=== PATIENT | male | born 1945 | race Caucasian/White ===

== ENCOUNTER 2016-10-13 11:30 | Outpatient (CLI) | payer MEDICARE, OTHER | END 2016-10-13 11:31 | disposition home or self-care (01) | DX: M79.642 Pain in left hand (principal); M79.641 Pain in right hand ==

== ENCOUNTER 2016-11-15 12:02 | Day surgery (SDC) | payer MEDICARE, OTHER ==
[2016-11-15] MEDS ORDERED: LACTATED RINGERS 1,000 ML IV ONE (13:00)
[2016-11-15] MEDS ORDERED: MIDAZOLAM 2 MG/2 ML VIAL IVP ONE (13:56)
[2016-11-15] MEDS ORDERED: fentaNYL 100 MCG/2 ML VIAL IVP ONE (13:56)
[2016-11-15] MEDS ORDERED: LIDO GARGLE 30 ML BOTTLE PO ONE (14:00)
[2016-11-15] MEDS ORDERED: BENZOCAINE/TETRACAINE/BUTAMBEN SPRAY 56 GM TOP ONE (14:00)
[2016-11-15 15:07] VITALS: BP 144/63
== END 2016-11-15 12:03 | disposition home or self-care (01) ==
LOC: SDS 12:02
PROVIDERS: ATTEND Surgery
PROC: 0DB68ZX Excision of Stomach, Via Natural or Artificial Opening Endoscopic, Diagnostic (ICD-10-PCS; 2016-11-15)
PROC: 0DBH8ZZ Excision of Cecum, Via Natural or Artificial Opening Endoscopic (ICD-10-PCS; principal; 2016-11-15 13:30)
PROC: 0DBL8ZZ Excision of Transverse Colon, Via Natural or Artificial Opening Endoscopic (ICD-10-PCS; 2016-11-15 13:30)
DX: R19.5 Other fecal abnormalities (principal); D12.0 Benign neoplasm of cecum; D12.3 Benign neoplasm of transverse colon; K64.8 Other hemorrhoids; K29.70 Gastritis, unspecified, without bleeding; Z87.891 Personal history of nicotine dependence; I10 Essential (primary) hypertension; G47.30 Sleep apnea, unspecified; R06.89 Other abnormalities of breathing; K21.9 Gastro-esophageal reflux disease without esophagitis; Z95.5 Presence of coronary angioplasty implant and graft
CPT/HCPCS: 43239; 45380; 45385; 87081; A9270; J7120; 88305

== ENCOUNTER 2017-05-14 09:50 | Outpatient (CLI) | payer MEDICARE, OTHER ==
[2017-05-14 10:19] LABS: BASOPHILS % (AUTO) 0.7 %; HCT - HEMATOCRIT 41.5 % (42.0-52.0); HGB - HEMOGLOBIN 14.3 g/dL (14.0-18.0); LYMPHOCYTES % (AUTO) 14.1 %; MEAN CORPUSCULAR HEMOGLOBIN 28.9 pg (27.0-31.0); MEAN CORPUSCULAR HGB CONC 34.4 g/dL (32.0-36.0); MEAN CORPUSCULAR VOLUME 84.2 fL (80.0-94.0); MONOCYTES # (AUTO) 0.5 10^3/uL (0.0-1.0); MONOCYTES % (AUTO) 6.7 %; NEUTROPHILS # (AUTO) 5.8 10^3/uL (1.5-6.6); NEUTROPHILS % (AUTO) 78.5 %; NUCLEATED RED BLOOD CELLS AUTO 0.1 /100WBC; RED BLOOD COUNT 4.93 10^6/uL (4.70-6.10); RED CELL DISTRIBUTION WIDTH 14.6 % (12.0-15.0); UNCORRECTED WHITE BLOOD COUNT 7.4 x10^3/uL; WHITE BLOOD COUNT 7.4 x10^3/uL (4.8-10.8)
[2017-05-14 10:34] LABS: ALBUMIN/GLOBULIN RATIO 1.1 (1.0-2.2); BILIRUBIN,TOTAL 0.4 mg/dL (0.2-1.0); CALCIUM 8.9 mg/dL (8.5-10.3); CREATININE 1.3 mg/dL (0.6-1.2); POTASSIUM 4.2 mmol/L (3.5-5.0); TOTAL PROTEIN 7.7 g/dL (6.7-8.2)
[2017-05-14 10:40] LABS: HEMOGLOBIN A1C 0.71 g/dL
== END 2017-05-14 09:51 | disposition home or self-care (01) ==
LOC: LAB 09:50
PROVIDERS: ATTEND Internal Medicine
DX: E11.9 Type 2 diabetes mellitus without complications (principal)
CPT/HCPCS: 36415; 80053; 83036; 85025

== ENCOUNTER 2017-05-17 08:31 | Outpatient (CLI) | payer MEDICARE, OTHER ==
[2017-05-17] MEDS ORDERED: GADOBUTROL 15 MMOL/15 ML VIAL ONE (08:52)
[2017-05-17] MEDS ORDERED: GADOBUTROL 15 MMOL/15 ML VIAL IVP ONE (09:33)
--- NOTE | 2017-05-17 20:10 | MRI Report ---
EXAM: MRI BRAIN WITHOUT AND WITH CONTRAST EXAM DATE: 05/17/2017 09:38 AM. CLINICAL HISTORY: Headaches. Blurred vision. Lip and toe tingling. COMPARISON: 01/25/2013. TECHNIQUE: Multiplanar, multisequence T1-weighted and fluid-sensitive MR sequences of the brain were performed. Sequences optimized for routine evaluation. Other: None. IV Contrast: Without and with 14 mL Gadavist. FINDINGS: Brain Volume: Normal for age. Parenchyma: No evidence for acute or recent ischemic infarct or cerebral hemorrhage. No mass effect, midline shift or abnormal subdural fluid collection. No intracranial enhancing or space-occupying mass. Again seen is a small amount of nonspecific white matter T2 hyperintense signal changes in the cerebr al hemispheres, similar to prior, likely secondary to aging and minimal chronic microangiopathy. Ventricles/Cisterns: No hydrocephalus. No abnormal extra-axial fluid collection or hemorrhage. Orbits: Symmetric and unremarkable. Sinuses: No acute-appearing sinus or mastoid disease. Bones: No focal pathologic appearing marrow signal changes. Other: The major arterial skull base flow voids are present. IMPRESSION: No acute abnormality or enhancing mass. Essentially stable MRI appearance of the brain compared to e prior exam. [facility] Referring Provider Line: [phone] SITE ID: [id number]
== END 2017-05-17 08:32 | disposition home or self-care (01) ==
LOC: DI 08:31
PROVIDERS: ATTEND Internal Medicine
DX: R51 Headache (principal)
CPT/HCPCS: 70553; A9585

== ENCOUNTER 2017-08-04 09:53 | Observation (INO) | payer MEDICARE, OTHER ==
[2017-08-04 10:19] LABS: BASOPHILS % (AUTO) 0.6 %; EOSINOPHILS % (AUTO) 0.1 %; LYMPHOCYTES # (AUTO) 1.1 10^3/uL (1.5-3.5); MEAN CORPUSCULAR HEMOGLOBIN 29.1 pg (27.0-31.0); MEAN CORPUSCULAR HGB CONC 34.1 g/dL (32.0-36.0); MEAN CORPUSCULAR VOLUME 85.3 fL (80.0-94.0); MEAN PLATELET VOLUME 6.9 fL (7.4-11.4); MONOCYTES # (AUTO) 0.5 10^3/uL (0.0-1.0); MONOCYTES % (AUTO) 8.3 %; NEUTROPHILS # (AUTO) 4.3 10^3/uL (1.5-6.6); PLT - PLATELET COUNT 165 10^3/uL (130-450); RED CELL DISTRIBUTION WIDTH 14.9 % (12.0-15.0)
--- NOTE | 2017-08-04 10:22 | ED Physician Documentation ---
History of Present Illness - Stated complaint Stated Complaint: CHEST PX - Chief complaint Chief Complaint: Cardiac - Additonal information Additional information: hx from pt 71 male hx HTN DM CHF this AM while in a riding shopping cart he developed left sided chest pain 7- 10 in severity lasting approx 30 min with associated soa and near syncope, no diaphoresis or nausea better now no recent fever cough etc Review of Systems Constitutional: denies: Fever, Chills Cardiac: reports: Chest pain / pressure. denies: Palpitations Respiratory: reports: Dyspnea. denies: Cough GI: denies: Abdominal Pain, Nausea, Vomiting Musculoskeletal: denies: Extremity pain, Extremity swelling Immunocompromised: denies: Immunocompromised PD PAST MEDICAL HISTORY - Past Medical History Past Medical History: Yes Cardiovascular: Congestive heart failure, Hypertension, High cholesterol Respiratory: Sleep apnea, CPAP use Neuro: Peripheral neuropathy Endocrine/Autoimmune: Type 2 diabetes GI: GERD, Pancreatitis, Other Psych: Post traumatic stress disorder Musculoskeletal: Osteoarthritis - Past Surgical History Past Surgical History: Yes General: Cholecystectomy, Other Ortho: Knee replacement - Present Medications Home Medications: Ambulatory Orders Medication Instructions Recorded Confirmed Aspirin 325 mg PO 2100 12/28/12 08/04/17 Prazosin [Minipress] 5 mg PO DAILY 12/28/12 08/04/17 Sertraline [Zoloft] 100 mg PO DAILY 12/28/12 08/04/17 Simvastatin [Zocor] 20 mg PO 2100 12/28/12 08/04/17 Furosemide 20 mg PO DAILY 08/15/14 08/04/17 Insulin Glargine,Hum.rec.anlog 50 units SQ 2100 10/01/15 08/04/17 [Lantus] Lipase/Protease/Amylase [Pancreaze 1 tab PO AC 10/01/15 08/04/17 10,500 Unit Cap] Cartilage/Collagen/Bor/Hyalur 2 each PO DAILY 11/12/16 08/04/17 [Joint Health Tablet] Insulin Aspart [NovoLOG] 20 unit SUBQ TIDWM 11/12/16 08/04/17 Minocycline HCl 100 mg PO DAILY 11/12/16 08/04/17 Pantoprazole [Protonix] 40 mg PO BID 11/12/16 08/04/17 - Allergies Allergies/Adverse Reactions: Allergies Allergy/AdvReac Type Severity Reaction Status Date / Time propoxyphene HCl * AdvReac Unknown Nausea Verified 08/04/17 10:01 [From Darvon] oxycodone AdvReac Hallucinati Verified 08/04/17 10:01 ons - Social History Does the pt smoke?: No Smoking Status: Never smoker Does the pt drink ETOH?: No Does the pt have substance abuse?: No - Immunizations Immunizations are current?: Yes - POLST Patient has POLST: No PD ED PE NORMAL - Vitals Vital signs reviewed: Yes - General General: Alert and oriented X 3 - HEENT HEENT: PERRL - Neck Neck: Supple, no meningeal sign - Cardiac Cardiac: RRR - Respiratory Respiratory: No respiratory distress, Clear bilaterally - Abdomen Abdomen: Soft, Non tender - Derm Derm: Normal color - Extremities Extremities: No deformity, No calf tenderness / cord. No: No edema (mild amaury symm) - Neuro Neuro: Alert and oriented X 3 Results - Vitals Vitals: Vital Signs - 24 hr 08/04/17 08/04/17 08/04/17 09:58 10:07 10:15 Temperature 36.3 C L Heart Rate 69 66 Respiratory 20 20 Rate Blood Pressure 203/91 H 182/90 H Blood Pressure 182/91 H [Left] O2 Saturation 98 99 08/04/17 12:11 Temperature Heart Rate 63 Respiratory 16 Rate Blood Pressure Blood Pressure [Left] O2 Saturation 99 Oxygen O2 Source Room air - EKG (time done) 0957 Rate: Rate (enter#) Rhythm: NSR Intervals: Normal RI QRS: Normal Ischemia: Normal ST segments Compare to prior EKG: Unchanged from prior EKG - Labs Labs: Laboratory Tests 08/04/17 08/04/17 08/04/17 10:00 10:00 10:00 WBC 6.0 RBC 4.80 Hgb 14.0 Hct 41.0 L MCV 85.3 MCH 29.1 MCHC 34.1 RDW 14.9 Plt Count 165 MPV 6.9 L Neut # 4.3 Lymph # 1.1 L Bailey # 0.5 Eos # 0.0 Baso # 0.0 Absolute Nucleated RBC 0.00 Nucleated RBC % 0.0 Sodium 140 Potassium 4.0 Chloride 102 Carbon Dioxide 27 Anion Gap 11.0 BUN 18 Creatinine 1.3 H Estimated GFR (MDRD) 55 L Glucose 134 H Calcium 8.9 Total Bilirubin 0.4 AST 37 ALT 40 Alkaline Phosphatase 58 Troponin I < 0.04 Total Protein 8.0 Albumin 4.4 Globulin 3.6 Albumin/Globulin Ratio 1.2 Lipase 17 L - Rads (name of study) CXR Radiology: See rad report (NACPD) PD MEDICAL DECISION MAKING - ED course ED course: HEART score 6 will admit remains pain free Departure - Departure Disposition: ED Place in Observation Clinical Impression: Chest pain Qualifiers: Chest pain type: unspecified Qualified Code(s): R07.9 - Chest pain, unspecified Condition: Good Discharge Date/Time: 08/04/17 13:10
[2017-08-04 10:37] LABS: ALBUMIN 4.4 g/dL (3.2-5.5); ALBUMIN/GLOBULIN RATIO 1.2 (1.0-2.2); BILIRUBIN,TOTAL 0.4 mg/dL (0.2-1.0); CALCIUM 8.9 mg/dL (8.5-10.3); CREATININE 1.3 mg/dL (0.6-1.2)
--- NOTE | 2017-08-04 11:40 | XRAY Report ---
EXAM: CHEST RADIOGRAPHY EXAM DATE: 08/04/2017 10:40 AM. CLINICAL HISTORY: Cp soa. COMPARISON: 10/01/2015. TECHNIQUE: 2 views. FINDINGS: Lungs/Pleura: No focal pulmonary opacities evident. No definite pleural effusion. Mild pleural-based density/thickening along the left lateral lower hemithorax is without gross change, consistent with a benign finding. No pneumothorax. Normal volumes. Mediastinum: Heart and mediastinal contours are unremarkable. Other: None. IMPRESSION: No definite acute abnormality of chest or significant interval change. [facility] Referring Provider Line: [phone] SITE ID: [id number]
--- NOTE | 2017-08-04 11:40 | XRAY Preliminary Report ---
Exam: XR CHEST 2 VIEW X-RAY IMPRESSION: No definite acute abnormality of chest or significant interval change. [facility] SITE ID: [id number]
[2017-08-04] MEDS ORDERED: ONDANSETRON 4 MG/2 ML VIAL IVP PRN (12:15)
[2017-08-04] MEDS ORDERED: ACETAMINOPHEN 325 MG TABLET PO PRN (12:15)
[2017-08-04] MEDS ORDERED: SODIUM CHLORIDE FLUSH 0.9% 10 ML SYRINGE IVP PRN (12:15)
[2017-08-04] MEDS ORDERED: ONDANSETRON ODT 4 MG TABLET TL PRN (12:15)
[2017-08-04] MEDS ORDERED: TEMAZEPAM 15 MG CAPSULE PO PRN (12:15)
[2017-08-04] MEDS ORDERED: NITROGLYCERIN SL 0.4 MG TABLET SL STA (12:28)
[2017-08-04] MEDS: SODIUM CHLORIDE FLUSH 0.9% 10 ML SYRINGE IVP SCH ×2 (15:36→21:10)
[2017-08-04] MEDS: LIPASE/PROTEASE/AMYLASE CAPSULE PO SCH (17:05)
--- NOTE | 2017-08-04 19:35 | HISTORY & PHYSICAL EXAMINATION ---
DATE OF SERVICE: 08/04/2017 Physician: Bekah Farooq MD PRIMARY CARE PROVIDER: Sav Lehman DO. ADMITTING PROVIDER: Bekah Farooq MD. CHIEF COMPLAINT: Chest pain. HISTORY OF PRESENT ILLNESS: Mr. Rubi is a short statured, morbidly obese gentleman, who has obstructive sleep apnea, hyperlipidemia, history of resolved hypertension, and diabetes mellitus. He is an ex-smoker. He has been evaluated for chest pain in the past. He had pulmonary embolus when he was in his 30's and still in the [employer]. He describes a ventilation perfusion scan perfectly. But he cannot tell me why he had a PE and what caused him to be hypercoagulable. He states that at that point in time, he was very active, healthy, in the [employer] and he never figured it out. He returned in 2012 to the emergency room here at this hospital, again, with chest pain. Troponins were negative. CT angiogram of the chest was negative for PE. He ruled out and has been sent home. Between then and now he had multiple medical issues including a catastrophic injury after an ERCP, but he has not had any admissions for [place], congestive heart failure, chest pain, or any type of heart disease. He has been in his usual state of health. He is gradually trying to get his strength back from the close to 1 year hospitalization in 2014 that he had for the catastrophic complications of common bile duct stone. Currently, he uses a scooter cart at [employer] [facility] [employer] when he goes grocery shopping. He had gone to [facility], and got in the cart, was scooting up and down the aisles with his cart. He had gotten to the [employer] register when all of a sudden he had a blazing 10/10 chest pain that was mid substernal. It swept down along his rib cage and left upper quadrant into the left mid axillary line in a half [place]. It resolved as he was paying for groceries. It made him lightheaded, clammy. He then went out to the truck once the pain went away. After he unloaded his groceries the same thing happened only this time it was a 7/10 pain lasting about 10 minutes. He decided to drive to the emergency room. This is where his got really mad at him because she felt he should have called 911. In the emergency room, he had slight pain at about 2-3/10. Right now talking to me it is a 2 or 3/10 as well, but he is not clammy, diaphoretic. He is not lightheaded. That only happened when he was in the [employer] store and in the [employer] parking lot. There was no left arm pain. No palpitations with this. He does not describe orthopnea, increasing leg edema in the last few weeks. He was evaluated in the emergency room where he was normotensive, not hypoxic, not tachycardic. His initial troponin was less than 0.04. His EKG shows sinus rhythm. Normal R -wave progressions. Normal ST segments. He does have a nondiagnostic Q in lead III. He is now placed in observation for atypical chest pain in a patient who has definite cardiac risk factors. PAST MEDICAL HISTORY: 1. Pulmonary embolus when he was in his 30s. 2. Morbid obesity. He has gotten down as low as 240 after catastrophic illness in 2014, but most likely he is about 320 pounds now. 3. History of hypertension that he says is resolved. He does not have that diagnosis anymore, but he takes Minipress. 4. Type 2 diabetes mellitus for over 10 years. He initially had quite a bit of peripheral neuropathy. But, the peripheral neuropathy went away after his pancreatic abscess debulked in 2014. He continues to have mild chronic kidney disease. Denies retinopathy. 5. Obstructive sleep apnea with CPAP. Has had 2 sleep studies here on [facility]. 6. Pulmonary hypertension is on a diagnosis in his old medical records. However, an echocardiogram done in February 2014 shows grade 1 diastolic dysfunction and pulmonary artery pressures that are fairly normal at 25-30 mmHg. 7. Hyperlipidemia. 8. Cluster headaches. 9. Posttraumatic stress disorder from being in [place]. 10. Reflux disease. 11. Fatty liver. 12. Osteoarthritis with a history of bilateral total knee replacements. 13. Common bile duct stone. He presented as epigastric pain in June 2014 to this institution. MRCP confirmed the common bile duct stone. He then was transferred and who at the institution he had the ERCP, had an undiagnosed laceration of what he calls "the pancreas." He was sent home. He subsequently developed necrotizing pancreatitis. He was transferred to [facility]. He says he was in the hospital pretty much from June 2014 to March 2015. 14. Carotid bruit. Dopplers done 02/2013 showed no stenosis. 15. C-spine stenosis on MRI from 03/2013. He has moderate right C5-C6 foraminal stenosis from uncovertebral and facet arthropathy. Moderate to severe bilateral C6-C7 foraminal stenosis from degenerative endplate marrow edema. Moderate left C2-3 foraminal stenosis. Multilevel bulges and facet arthropathy. 16. History of headache and blurred vision, resulting in an MRI 05/17/2017 that was normal. This is compared to a 07/2012 MRI of the head that was also normal. 17. Tubular adenomas of the large bowel found on colonoscopy 10/2016. ALLERGIES: 1. PROPOXYPHENE. 2. OXYCODONE. MEDICATIONS: 1. Aspirin 325 mg a day. 2. A collagen supplement 2 tablets daily. 3. Lasix 20 mg daily. 4. NovoLog insulin 20 units before each meal. 5. Lantus 50 units at 9 o'clock. 6. Lipase, protease, amylase 1 tablet before each meal. 7. Minocycline 100 mg daily. 8. Protonix 40 mg p.o. b.i.d. 9. Minipress 5 mg daily. 7. Zoloft 100 mg daily. 8. Simvastatin 20 mg daily. SOCIAL HISTORY: He was born in [place], [place] and then served in the [employer] when he left home. 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 He moved to [facility] in 2003. He lives in [place] with his . He does not smoke. He does not have a history of alcohol abuse. He has no history of recreational substance abuse. He was independent, still driving, until the catastrophic illness from the pancreatitis. FAMILY HISTORY: Dad had coronary artery disease in his late 60s with bypass surgery. Dad also had diabetes. Mom was healthy. Siblings have been healthy and his children have been healthy. REVIEW OF SYSTEMS GENERAL: He has no constitutional complaints of fevers, sweats, unexpected weight changes. ENT: Sometimes gets some blurred vision. Sometimes gets headaches. Sometimes gets facial dysesthesias. No problems with swallowing. No problems with speech. Denies deafness. Denies glaucoma or cataracts. PULMONARY: Denies coughing, wheezing, chest congestion, hemoptysis, chronic bronchitis or asthma. CARDIOVASCULAR: As above. GASTROINTESTINAL: As above. He knows what reflux pain feels like and this is not reflux pain. No recent change in bowel or bladder habits. GENITOURINARY: Nocturia once. Decreased stream mild, but no urgency, frequency , dysuria, hematuria. JOINTS: Bother him, back, neck, hands, hips. But the pain is unchanged. Nothing new. No change in activity because of it. SKIN: No new skin lesions, moles or rashes. PRODUCT RESPONSIBILITY LIAISON: Positive for the PTSD, anxiety at times, nightmares at times, but no suicidal or homicidal ideation. No history of syncope, seizures. Denies any memory problems. Overall, mobility has decreased since his almost year long illness and he finds himself not able to do prolonged activity. So he relies a lot on a scooter or a walker. He is seen in med/surg after being transferred from ICU. PHYSICAL EXAMINATION VITAL SIGNS: Temperature is 36.3, pulse is 59, blood pressure is 143/73, respirations 18, and 98% on room air. GENERAL: He is a short-statured, morbidly obese gentleman, balding, wearing glasses, sitting at the bedside watching TV, in no acute distress. HEAD AND NECK: Unremarkable other than the glasses, slightly nasal tone of voice. Moist oral mucosa that is pink. No facial asymmetry and speech is normal. LUNGS: Lungs in a barrel chest are clear to auscultation and percussion. No crackles, rhonchi or wheezing. HEART: PMI is normally placed, but he has distant cardiac tones with a regular rate and rhythm. ABDOMEN: Soft, obese, protuberant, nontender with a large abdominal pannus. EXTREMITIES: Trace edema and cankles without clubbing, cyanosis or edema. NEUROLOGIC: He is alert and oriented to person, place and time. Lucid historian. Normal speech patterns. Essentially cranial nerves II-XII appear intact. Hand grasp strength is normal. He lifts his legs off the bed for me and those are normal. He is able to swing himself to a sitting and standing position with no assist needed whatsoever. Mild increased respiratory effort with this. LABORATORY DATA: Sodium 140, potassium 4, BUN 18, creatinine 1.3, random glucose 134. Troponin less than 0.04. White cell count is 6, hemoglobin 14, hematocrit 41, platelets 165. EKG as above. Chest x-ray has no definite acute abnormality or significant interval change. ASSESSMENT 1. Chest pain in a gentleman whose risk factors include male sex, obesity, hyperlipidemia, diabetes, and supposedly history of resolved hypertension with the family history. Attestation: This gentleman will be placed under observation for less than 96 hours. If he is still here at 96 hours, he will be evaluated for discharge or transfer. PLAN We will place in observation for rule out myocardial infarction. Check serial cardiac enzymes every 6 hours for a total set of 3 sets overall. Continue aspirin and Lipitor. Nuclear medicine stress test with Lexiscan tomorrow morning. 2. Hypertension. PLAN: Resume usual medications. Avoid beta blockers in anticipation of the stress test tomorrow. Blood pressure is mildly elevated in the 180s to 140s for him. He may need adjustment of his medications in the outpatient setting. Right now, he is just on an alpha juan manuel. 3. Type 2 diabetes mellitus, with complications, on long-term use of insulin. PLAN Check A1c. Resume usual Lantus dose. Resume usual before meals t.i.d. 20 units dosing. Sliding scale insulin. 4. FULL CODE STATUS. 5. Deep venous thrombosis prophylaxis will be NATE hose at most since he is ambulatory and at low risk. I am puzzled by the fact that he had the PE in his 30s. He had another CT pulmonary angiogram negative in 2012. We will not repeat at this time since chest pain is not associated with hypoxia or tachycardia. TD: 08/04/2017 19:33 LUCIA
[2017-08-04] MEDS: INSULIN ASPART 300 UNIT/3 ML PEN SUBQ SCH (19:50)
[2017-08-04] MEDS ORDERED: ATORVASTATIN 10 MG TABLET PO SCH (21:00)
[2017-08-04] MEDS ORDERED: INSULIN GLARGINE 300 UNIT/3 ML PEN SUBQ SCH (21:00)
[2017-08-04] MEDS: PANTOPRAZOLE 40 MG TABLET PO SCH (21:09)
[2017-08-05 06:31] LABS: CHOL/HDL RATIO 4.9 (<5.0); CHOLESTEROL 123 mg/dL; HDL CHOLESTEROL 25 mg/dL; LDL CHOLESTEROL,CALCULATED 73 mg/dL; LDL/HDL RATIO 2.9 (<3.6); VLDL CHOLESTEROL 25 mg/dL
[2017-08-05] MEDS: SODIUM CHLORIDE FLUSH 0.9% 10 ML SYRINGE IVP SCH (06:55)
[2017-08-05] MEDS: LIPASE/PROTEASE/AMYLASE CAPSULE PO SCH ×2 (08:00→13:21)
[2017-08-05] MEDS: INSULIN ASPART 300 UNIT/3 ML PEN SUBQ SCH ×2 (08:00→13:21)
[2017-08-05] MEDS ORDERED: POLYETHYLENE GLYCOL 3350 17 GM PACKET PO SCH (09:00)
[2017-08-05] MEDS ORDERED: SERTRALINE 50 MG TABLET PO SCH (09:00)
[2017-08-05] MEDS ORDERED: ASPIRIN 325 MG TABLET PO SCH (09:00)
[2017-08-05] MEDS ORDERED: MINOCYCLINE HCL 100 MG PO SCH (09:00)
[2017-08-05] MEDS ORDERED: PRAZOSIN 1 MG CAPSULE PO SCH (09:00)
[2017-08-05] MEDS ORDERED: INSULIN GLARGINE 300 UNIT/3 ML PEN SUBQ SCH (09:00)
[2017-08-05] MEDS ORDERED: FUROSEMIDE 20 MG TABLET PO SCH (09:00)
--- NOTE | 2017-08-05 09:10 | Discharge Plan ---
Discharge Plan Disposition: 01 Home, Self Care Condition: Good Diet: Cardiac Activity Restrictions: Activity as Tolerated Shower Restrictions: No Driving Restrictions: No Additional Instructions or Follow Up instructions: You were placed under observation because you began having left-sided chest pain while you are shopping at [employer] yesterday. You have all the risk factors for heart disease and that includes male sex, high cholesterol, a family history, diabetes, and ex-smoking history. At one point used to have high blood pressure. Your EKG has remained normal. 3 sets of blood tests were done to make sure you were not having a heart attack and the enzymes were all normal. You also had a stress test at discharge. While the preliminary EKG is normal, the final report for the x-ray part of your heart is pending. Please make sure that you see your primary care provider and that they review that x-ray part. The cause of your chest pain is still not clear. You may have had rib cage spasm, esophageal spasm, or other causes of chest pain. Again your primary care provider may work with you to find out what the cause was. No Smoking: If you smoke, Please STOP! Call for help. Follow-up with: Sav Lehman MD [Primary Care Provider] -
[2017-08-05] MEDS ORDERED: REGADENOSON 0.4 MG/5 ML SYRINGE IVP ONE ×2 (10:01→11:13)
[2017-08-05] MEDS: PANTOPRAZOLE 40 MG TABLET PO SCH (13:20)
[2017-08-05 14:08] VITALS: BP 139/72
--- NOTE | 2017-08-05 14:18 | Nuclear Medicine Prelim Report ---
Exam: NM MYOCARDIAL PERFUSION STR/RST IMPRESSION: 1. Inferior wall fixed defect -- differential diagnosis is diaphragmatic artifact given patient's la rge body habitus versus old nontransmural inferior wall infarct. 2. No scintigraphic evidence of inducible ischemia. 3. Left ventricular ejection fraction estimated at 65%. [facility] SITE ID: [id number]
--- NOTE | 2017-08-05 14:18 | Nuclear Medicine Report ---
EXAM: NUCLEAR MEDICINE MYOCARDIAL PERFUSION STRESS AND REST EXAM DATE: 08/05/2017 09:39 AM. CLINICAL HISTORY: Chest pain. COMPARISON: 08/04/17. TECHNIQUE: Patient given 11.6 mCi technetium 99m sestamibi IV for the rest portion of the study. Non- gated cardiac SPECT scintigraphy performed with multiplanar reformats. After an appropriate delay, patient given 0.4 mg Lexiscan for pharmacologic stress. Next, given 41.8 mCi Tc99m sestamibi iv. Cardiac gated SPECT scintigraphy obtained with multiplanar reformats, wall m otion analysis, and left ventricular ejection fraction estimation. FINDINGS: There is a moderate size focus of mild decreased activity in the inferior wall from apex to base, fix ed on both stress and rest. No reversible stress-related perfusion defects. Wall motion is uniform. Left ventricular ejection fraction estimated at 65%. IMPRESSION: 1. Inferior wall fixed defect -- differential diagnosis is diaphragmatic artifact given patient's la rge body habitus versus old nontransmural inferior wall infarct. 2. No scintigraphic evidence of inducible ischemia. 3. Left ventricular ejection fraction estimated at 65%. [facility] Referring Provider Line: [phone] SITE ID: [id number]
--- NOTE | 2017-08-06 22:41 | DISCHARGE SUMMARY ---
Physician: Bekah Farooq MD DATE OF ADMISSION: 08/04/2017 DATE OF DISCHARGE: 08/05/2017 DISCHARGE DIAGNOSES 1. Chest pain. 2. Hypertension. 3. Type 2 diabetes mellitus, controlled, with complications, on long-term use of insulin. DISCHARGE MEDICATIONS: Without change. 1. Aspirin 325 mg p.o. daily. 2. Collagen capsules 2 daily. 3. Lasix 20 mg daily. 4. NovoLog 20 units subcu t.i.d. before meals. 5. Lantus 50 units at bedtime. 6. Pancrease capsule p.o. before meals t.i.d. 7. Minocycline 100 daily. 8. Protonix 40 b.i.d. 9. Prazosin 5 mg daily. 10. Zoloft 100 mg p.o. daily. 11. Zocor 20 mg p.o. daily. PRINCIPAL PROCEDURES 1. Serial cardiac enzymes, which were negative. 2. Nuclear medicine stress test, which was negative. He had no EKG changes with the stress portion. Nuclear medicine imaging showed a fixed defect of the inferior wall that could be either artifact from his weight and diaphragm or old true IN. There were no reversible defects and left ventricular ejection fraction was normal. HOSPITAL COURSE: He is a 71-year-old morbidly obese man, who has become quite sedentary because of illness and injury dating to 2015 from a necrotic gallbladder. He has all the risk factors for heart disease, including male sex, diabetes, hypertension, hyperlipidemia, family history. Please refer to the detailed history and physical. During his observation stay, his cardiac enzymes were negative and stress test was as above. I am having him follow up with his primary care provider, Dr. Sav Lehman, in the next 1-2 weeks. DISCHARGE PHYSICAL EXAMINATION VITAL SIGNS: Temperature 36.8, heart rate 67, blood pressure 139/72, respirations 18, 93% on room air. GENERAL: He is a short-statured, morbidly obese, pleasant white male. No cranial nerve deficits other than possible deafness. NECK: Supple, without bruits. LUNGS: Clear in a barrel chest without crackles, rhonchi or wheezing. He has diminished breath sounds at the bases. He has distant cardiac tones with a regular rate and rhythm. ABDOMEN: Protuberant, soft, nontender, obese. NEUROLOGIC: He is ambulating in the room without any focal deficits or ataxia. However, he fatigues easily and he usually prefers to use a scooter when out of the house, such as shopping. Discharged in stable condition. TD: 08/06/2017 22:32
== END 2017-08-05 14:45 | disposition home or self-care (01) ==
LOC: ED 09:53 → OBS 12:15
PROVIDERS: ADMIT Specialist; ATTEND Specialist
DX: R07.2 Precordial pain (principal); I10 Essential (primary) hypertension; E11.22 Type 2 diabetes mellitus with diabetic chronic kidney disease; N18.9 Chronic kidney disease, unspecified; K21.9 Gastro-esophageal reflux disease without esophagitis; E66.01 Morbid (severe) obesity due to excess calories; G47.33 Obstructive sleep apnea (adult) (pediatric); E78.5 Hyperlipidemia, unspecified; F43.10 Post-traumatic stress disorder, unspecified; Z82.49 Family history of ischemic heart disease and other diseases of the circulatory system; Z68.41 Body mass index [BMI] 40.0-44.9, adult; Z87.891 Personal history of nicotine dependence; Z79.82 Long term (current) use of aspirin; Z79.4 Long term (current) use of insulin; Z86.711 Personal history of pulmonary embolism; Z96.653 Presence of artificial knee joint, bilateral; Z79.2 Long term (current) use of antibiotics
CPT/HCPCS: 36415; 71046; 78452; 80053; 80061; 83690; 84484; 85025; 87640; 93005; 93017; 99284; A9270; A9500; G0378; J1815; J2785; 83721

== ENCOUNTER 2017-11-28 12:25 | Outpatient (CLI) | payer MEDICARE, OTHER ==
--- NOTE | 2017-12-01 15:09 | Ultrasound Report ---
BILATERAL LOWER EXTREMITY ARTERIAL DOPPLER EXAMINATION: 11/28/2017 HISTORY: Diabetes. Bilateral foot and leg pain. TECHNIQUE: Real-time sonographic vascular imaging was performed by the branch assistant through the lower extremities utilizing both color-flow and Doppler spectral analysis. Multiple auto service representative static images were saved for review. RIGHT SIDE SITE PSV WAVEFORM STEN STAFF DEVELOPMENT COORDINATOR 125 biphasic [] PSFA 107 triphasic [] MSFA 110 triphasic [] DSFA 73 triphasic [] PFA 110 biphasic [] POP 58 triphasic [] ANASTASIA 91 monophasic [] SALESFORCE DEVELOPER 77 monophasic [] PER 112 triphasic [] DPA 106 monophasic [] LEFT SIDE SITE PSV [employer]AVE[employer] STEN STAFF DEVELOPMENT COORDINATOR 132 triphasic [] PSFA 106 triphasic [] MSFA 87 triphasic [] DSFA 84 triphasic [] PFA 60 biphasic [] POP 59 triphasic [] ANASTASIA 83 biphasic [] SALESFORCE DEVELOPER 82 biphasic [] PER 84 triphasic [] DPA 101 monophasic [] SYSTOLIC PRESSURES RIGHT LEFT BRACHIAL ARTERY 134/58 143/70 POSTERIOR TIBIAL ARTERY 145/66 133/66 ANTERIOR TIBIAL ARTERY -- -- PERONEAL ARTERY -- -- ANKLE/ARM INDEX 1.08 0.93 IMPRESSION: NO FLOW-LIMITING STENOSIS IN EITHER LOWER EXTREMITY. TD: 11/28/2017 16:10 MTDIla
== END 2017-11-28 12:26 | disposition home or self-care (01) ==
LOC: DI 12:25
PROVIDERS: ATTEND Podiatrist
DX: E11.59 Type 2 diabetes mellitus with other circulatory complications (principal); M79.671 Pain in right foot; M79.672 Pain in left foot
CPT/HCPCS: 93925

== ENCOUNTER 2018-03-05 11:28 | Outpatient (CLI) | payer MEDICARE, OTHER | END 2018-03-05 11:29 | disposition critical access hospital (66) | LOC: EMS 11:28 | PROVIDERS: ATTEND Surgery | DX: R07.9 Chest pain, unspecified (principal) | CPT/HCPCS: A0425; A0427 ==

== ENCOUNTER 2018-03-05 11:46 | Emergency (ER) | payer MEDICARE, OTHER ==
[2018-03-05 13:09] LABS: BASOPHILS # (AUTO) 0.1 10^3/uL (0.0-0.1); BASOPHILS % (AUTO) 0.9 %; EOSINOPHILS % (AUTO) 0.5 %; HGB - HEMOGLOBIN 13.1 g/dL (14.0-18.0); LYMPHOCYTES % (AUTO) 15.1 %; MEAN CORPUSCULAR HEMOGLOBIN 29.9 pg (27.0-31.0); MEAN CORPUSCULAR HGB CONC 34.2 g/dL (32.0-36.0); MEAN CORPUSCULAR VOLUME 87.3 fL (80.0-94.0); MONOCYTES # (AUTO) 0.5 10^3/uL (0.0-1.0); NEUTROPHILS # (AUTO) 4.9 10^3/uL (1.5-6.6); NEUTROPHILS % (AUTO) 76.5 %; PLT - PLATELET COUNT 144 10^3/uL (130-450); RED BLOOD COUNT 4.38 10^6/uL (4.70-6.10); RED CELL DISTRIBUTION WIDTH 14.4 % (12.0-15.0); WHITE BLOOD COUNT 6.4 x10^3/uL (4.8-10.8)
--- NOTE | 2018-03-05 13:11 | ED Physician Documentation ---
PD HPI CHEST PAIN - Stated complaint Stated Complaint: CHEST PAIN - Chief complaint Chief Complaint: Cardiac - History obtained from History obtained from: Patient, Family - History of Present Illness Timing - onset: Enter time (0500), Today Timing - onset during: Rest Timing - duration: Hours Timing - details: Abrupt onset, Now resolved, Waxing and waning Quality: Pressure, Sharp, Pain Location: Substernal, Left chest Radiation: Neck, Back, Other (left groin) Improved by: Nitro Associated symptoms: Diaphoresis, Nausea Similar symptoms before: No diagnosis Recently seen: Emergency Dept - Additional information Additional information: 72-year-old male with a history of hypertension and type 2 diabetes has awoken this morning at 530 with substernal chest pain with radiation into his left arm. He was able to get back to sleep and when he awoke at 8:00 he had pain again and this time it went from his jaw all the way down to his left groin. He had improvement in this with the use of sublingual nitroglycerin sequentially. He had complete resolution of his symptoms prior to arrival to the emergency department. He was hypertensive during the episode. He was not ill prior to this and had been feeling well earlier in the week with the exception of some diarrhea. He had the pain starting at 530am and did not call the ambulance until after 11am. Review of Systems Constitutional: denies: Fever, Chills, Myalgias Eyes: denies: Decreased vision Ears: denies: Ear pain Nose: denies: Rhinorrhea / runny nose, Congestion Throat: denies: Sore throat Cardiac: reports: Chest pain / pressure. denies: Palpitations, Pedal edema, Calf pain Respiratory: denies: Dyspnea, Cough GI: denies: Abdominal Pain, Nausea, Vomiting : denies: Dysuria, Frequency Skin: denies: Rash Musculoskeletal: denies: Neck pain, Back pain, Extremity pain Neurologic: denies: Generalized weakness, Focal weakness, Numbness PD PAST MEDICAL HISTORY - Past Medical History Cardiovascular: Congestive heart failure, Hypertension, High cholesterol Respiratory: Sleep apnea, CPAP use Endocrine/Autoimmune: Type 2 diabetes GI: GERD, Pancreatitis, Other : None HEENT: Chronic vision loss Psych: Post traumatic stress disorder Musculoskeletal: Osteoarthritis - Past Surgical History Past Surgical History: Yes General: Cholecystectomy, Other Ortho: Knee replacement - Present Medications Home Medications: Ambulatory Orders Medication Instructions Recorded Confirmed Aspirin 325 mg PO 2100 07/04/13 02/08/18 Prazosin [Minipress] 5 mg PO DAILY 12/28/12 08/04/17 Sertraline [Zoloft] 100 mg PO DAILY 12/28/12 08/04/17 Simvastatin [Zocor] 20 mg PO 209912/28/12 08/04/17 Furosemide 20 mg PO DAILY 08/15/14 08/04/17 Insulin Glargine,Hum.rec.anlog 50 units SQ 2100 10/01/15 08/04/17 [Lantus] Lipase/Protease/Amylase [Pancreaze 1 tab PO AC 10/01/15 08/04/17 10,500 Unit Cap] Cartilage/Collagen/Bor/Hyalur 2 each PO DAILY 11/12/16 08/04/17 [Joint Health Tablet] Insulin Aspart [NovoLOG] 20 unit SUBQ TIDWM 11/12/16 08/04/17 Minocycline HCl 100 mg PO DAILY 11/12/16 08/04/17 Pantoprazole [Protonix] 40 mg PO BID 11/12/16 08/04/17 - Allergies Allergies/Adverse Reactions: Allergies Allergy/AdvReac Type Severity Reaction Status Date / Time propoxyphene HCl * AdvReac Unknown Nausea Verified 08/04/17 10:01 [From Darvon] codeine AdvReac Diaphoresis Verified 03/05/18 11:57 oxycodone AdvReac Hallucinati Verified 08/04/17 10:01 ons - Social History Does the pt smoke?: No Smoking Status: Never smoker Does the pt drink ETOH?: No Does the pt have substance abuse?: No - Immunizations Immunizations are current?: Yes - POLST Patient has POLST: No PD ED PE NORMAL - Vitals Vital signs reviewed: Yes (hypertensive mild with wide pulse pressure) - General General: Alert and oriented X 3, No acute distress, Well developed/nourished - HEENT HEENT: Atraumatic, PERRL, EOMI - Neck Neck: Supple, no meningeal sign, No bony TTP - Cardiac Cardiac: RRR, No murmur - Respiratory Respiratory: No respiratory distress, Clear bilaterally - Abdomen Abdomen: Soft, Non tender, Other (obese) - Back Back: No CVA TTP, No spinal TTP - Derm Derm: Normal color, Warm and dry, No rash - Extremities Extremities: No deformity, No edema, Other (There is post inflamitory hyperpigmentation present bilaterally ) - Neuro Neuro: Alert and oriented X 3, 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, No motor deficit, No sensory deficit, Normal speech Eye Opening: Spontaneous Motor: Obeys Commands Verbal: Oriented GCS Score: 15 - Psych Psych: Normal mood, Normal affect Results - Vitals Vitals: Vital Signs - 24 hr 03/05/18 03/05/18 03/05/18 11:47 12:00 14:00 Heart Rate 72 60 58 L Respiratory 18 10 L 14 Rate Blood Pressure 138/63 H 121/57 L 121/51 L O2 Saturation 97 98 97 03/05/18 03/05/18 03/05/18 14:41 15:00 16:00 Heart Rate 58 L 56 L 60 Respiratory 13 12 Rate Blood Pressure 120/64 115/54 L 128/66 O2 Saturation 97 97 98 Oxygen O2 Source Room air - EKG (time done) 1152 Rate: Rate (enter#) (63) QRS: Low voltage Compare to prior EKG: Unchanged from prior EKG (08-14-17) Computer interpretation: Agree with computer - Labs Labs: Laboratory Tests 03/05/18 03/05/18 03/05/18 13:00 13:04 13:04 WBC 6.4 RBC 4.38 L Hgb 13.1 L Hct 38.2 L MCV 87.3 MCH 29.9 MCHC 34.2 RDW 14.4 Plt Count 144 MPV 7.0 L Neut # (Auto) 4.9 Lymph # (Auto) 1.0 L [place] # (Auto) 0.5 Eos # (Auto) 0.0 Baso # (Auto) 0.1 Absolute Nucleated RBC 0.00 Nucleated RBC % 0.0 D-Dimer < 200.0 L Sodium 138 Potassium 4.4 Chloride 102 Carbon Dioxide 29 Anion Gap 7.0 BUN 17 Creatinine 1.3 H Estimated GFR (MDRD) 54 L Glucose 143 H Calcium 8.6 Total Bilirubin 0.5 AST 30 ALT 35 Alkaline Phosphatase 52 Troponin I Total Protein 6.9 Albumin 3.6 Globulin 3.3 Albumin/Globulin Ratio 1.1 Lipase 29 03/05/18 03/05/18 13:04 15:05 WBC RBC Hgb Hct MCV MCH MCHC RDW Plt Count MPV Neut # (Auto) Lymph # (Auto) [place] # (Auto) Eos # (Auto) Baso # (Auto) Absolute Nucleated RBC Nucleated RBC % D-Dimer Sodium Potassium Chloride Carbon Dioxide Anion Gap BUN Creatinine Estimated GFR (MDRD) Glucose Calcium Total Bilirubin AST ALT Alkaline Phosphatase Troponin I < 0.04 < 0.04 Total Protein Albumin Globulin Albumin/Globulin Ratio Lipase - Rads (name of study) 2 view chest Radiology: Prelim report reviewed (Impression: No acute cardiopulmonary abnormality.), EMP read indepedently, See rad report Procedures - IVC sono (time) 1520 Bedside IVC sono: IVC measures (cm) (1.48 poorly visible vessle), IVC collapsed c insp (cm) (complete), Dehydration (est 1 liter.) PD MEDICAL DECISION MAKING - ED course Complexity details: reviewed old records, reviewed results, re-evaluated patient , considered differential, d/w patient, d/w family ED course: 72-year-old male with history of hypertension and diabetes who has had a prior episode similar to this back in July of this year and was admitted in the hospital for observation and had a negative chemical stress test. Today he has had an episode of chest pain associated with hypertension that lasted for 5+ hours. His hypertension is resolved, his pain is resolved and he has 2 negative troponins. I suspect his pain was related to his hypertension and in a search for a reason for a hypertensive urgency the patient's inferior vena cava was interrogated and it does appear to collapse completely and fill incompletely. He is given a liter of saline intravenously to arrest the hypertensive reflex associated with low volume. - Sepsis Event Vital Signs: Vital Signs - 24 hr 03/05/18 03/05/18 03/05/18 11:47 12:00 14:00 Heart Rate 72 60 58 L Respiratory 18 10 L 14 Rate Blood Pressure 138/63 H 121/57 L 121/51 L O2 Saturation 97 98 97 03/05/18 03/05/18 03/05/18 14:41 15:00 16:00 Heart Rate 58 L 56 L 60 Respiratory 13 12 Rate Blood Pressure 120/64 115/54 L 128/66 O2 Saturation 97 97 98 Oxygen O2 Source Room air Departure - Departure Disposition: 01 Home, Self Care Clinical Impression: Atypical chest pain Hypertension Qualifiers: Hypertension type: essential hypertension Qualified Code(s): I10 - Essential ( primary) hypertension Condition: Stable Instructions: ED Chest Pain Atypical Unkn Cause, ED HTN Established Follow-Up: Your, doctor [Other]
[2018-03-05 13:22] LABS: ALBUMIN 3.6 g/dL (3.2-5.5); ALBUMIN/GLOBULIN RATIO 1.1 (1.0-2.2); BILIRUBIN,TOTAL 0.5 mg/dL (0.2-1.0); CALCIUM 8.6 mg/dL (8.5-10.3); CREATININE 1.3 mg/dL (0.6-1.2); TOTAL PROTEIN 6.9 g/dL (6.7-8.2)
--- NOTE | 2018-03-05 13:46 | XRAY Report ---
Reason: chest pain Procedure Date: 03/05/2018 Accession Number: [id number] / [id number] Procedure: XR - Chest 2 View X-Ray CPT Code: 37854 FULL RESULT: EXAM: CHEST RADIOGRAPHY EXAM DATE: 03/05/2018 01:27 PM. CLINICAL HISTORY: Chest pain. COMPARISON: 08/04/2017. TECHNIQUE: 2 views. FINDINGS: Lungs/Pleura: No focal consolidation. No pleural effusion. No pneumothorax. Normal volumes. Mediastinum: Heart and mediastinal contours are unremarkable. Other: None. IMPRESSION: No acute cardiopulmonary abnormality. RADIA
[2018-03-05] MEDS ORDERED: SODIUM CHLORIDE 0.9% 1,000 ML IV ONE (15:47)
[2018-03-05 17:10] VITALS: BP 144/85
== END 2018-03-05 17:12 | disposition home or self-care (01) ==
LOC: EDUNIT# → ED 11:46
DX: R07.89 Other chest pain (principal); I11.0 Hypertensive heart disease with heart failure; E11.9 Type 2 diabetes mellitus without complications; I50.9 Heart failure, unspecified; Z79.4 Long term (current) use of insulin
CPT/HCPCS: 36415; 71046; 80053; 83690; 84484; 85025; 85379; 93005; 99284

== ENCOUNTER 2018-03-25 13:54 | Outpatient (CLI) | payer MEDICARE, OTHER ==
[2018-03-25 14:18] LABS: CALCIUM 8.6 mg/dL (8.5-10.3); CREATININE 1.2 mg/dL (0.6-1.2)
== END 2018-03-25 13:55 | disposition home or self-care (01) ==
LOC: LAB 13:54
PROVIDERS: ATTEND Family Medicine
DX: I11.0 Hypertensive heart disease with heart failure (principal); I50.9 Heart failure, unspecified; E11.9 Type 2 diabetes mellitus without complications
CPT/HCPCS: 80048; 83880

== ENCOUNTER 2020-07-14 17:37 | Outpatient (CLI) | payer MEDICARE, OTHER | END 2020-07-14 17:38 | disposition home or self-care (01) | LOC: COV 17:37 | PROVIDERS: ATTEND Family Medicine | DX: R05 Cough (principal); Z20.822 Contact with and (suspected) exposure to COVID-19; R06.02 Shortness of breath; R53.83 Other fatigue; R68.83 Chills (without fever); J02.9 Acute pharyngitis, unspecified; R43.9 Unspecified disturbances of smell and taste; R09.81 Nasal congestion ==

== ENCOUNTER 2022-01-01 09:45 | Outpatient (CLI) | payer MEDICARE, OTHER ==
--- NOTE | 2022-01-01 14:33 | CT Report ---
PROCEDURE: HEAD WO INDICATIONS: DIZZINESS TECHNIQUE: Noncontrast 4.5 mm thick angled axial sections acquired from the foramen magnum to the vertex. For r adiation dose reduction, the following was used: automated exposure control, adjustment of mA and/or kV according to patient size. COMPARISON: None FINDINGS: Image quality: Excellent. CSF spaces: Basal cisterns are patent. No extra-axial fluid collections. The ventricles are symmet benjy in size and shape. Brain: No intracranial bleeds or masses. There is cerebral volume loss for age, with resultant vent ricular and sulcal prominence. There are periventricular and deep white matter chronic small vessel ischemic changes. There is intracranial internal carotid artery and vertebral artery atherosclerosis . Skull and face: Calvarium and visualized facial bones appear intact, without suspicious lesions. Sinuses: Visualized sinuses and mastoids are clear. IMPRESSION: No acute intracranial disease process. Reviewed by: Franca Abrams MD, PhD on 01/01/2022 2:31 PM PDT Approved by: Franca Abrams MD, PhD on 01/01/2022 2:31 PM PDT Station ID: [id number]
== END 2022-01-01 09:46 | disposition home or self-care (01) ==
LOC: DI 09:45
PROVIDERS: ATTEND Student in an Organized Health Care Education/Training Program
DX: R42 Dizziness and giddiness (principal)

== ENCOUNTER 2022-11-12 12:59 | Outpatient (CLI) | payer MEDICARE, OTHER ==
--- NOTE | 2022-11-12 13:48 | Sleep Patient Instructions ---
Sleep Center Visit Summary - Patient Visit Information Reason for Visit: Initial consult with patient who has previous diagnosis of sleep apnea - Patient Instructions Instructions Attached: Sleep Study, Sleep Clinic Visit Additional Instructions: You will be completing a sleep study, either an in-lab polysomnography (PSG) or home sleep study (HST). You will follow-up in the sleep care office after the sleep study is completed to hear the results and talk about therapy, if needed. You will be called by our office staff to schedule this appointment, but you may contact us with any questions. - Clinic Information Contact: [facility] [address] [place] [address] [email or web address] T: [phone]
--- NOTE | 2022-11-12 13:56 | SLEEP CARE CONSULTATION ---
Information from patient questionnaire entered by Kilo Cordova. I have reviewed and concur with the information entered by Kilo Cordova. This document represents the service I personally performed and the decisions made by me, Angie Ceja ARNP. History of Present Illness Service Date and Time: 11/12/2022 1259 Reason for Visit: New patient, Previously diagnosed sleep apnea Chief Complaint: reports: Insomnia, Unrefreshed sleep, Snoring, Excessive daytime sleepiness, Observed pauses in breathing, Fatigue, Frequent awakenings at night Date of Onset: 50+YRS Usual bedtime: 11PM Time it takes to fall asleep: 1HR Snores at night: Yes Observed to quit breathing while asleep: Yes Sleeps alone due to snoring: Yes Number of times waking at night: 4-8 Reasons for waking at night: reports: Pain, Bathroom, Other (NOISE, STRESS, PTSD). denies: Choking, Snoring, Gasping for air Toss, Turn, or Twitch while sleeping: Yes Recalls having dreams: Yes Usually gets out of bed at: 10AM Feels refreshed in the morning: No Morning headache: Yes (almost every day; DEPENDS on type of NARAYANAN) Sleepy or fatigued during the day: Yes Ever fallen asleep while driving: Yes (drowsy driving; no accidents) Takes day naps: Yes (last yr; daily naps for 1.5-2 hrs, does feel somewhat r efreshed) Dreams during day naps: Yes Prior sleep studies: Yes Year and Where: [facility] 2012 Type of Sleep Study: Polysomnography Additional HPI information: I had the pleasure of seeing ROSALINDA MCMAHAN today regarding the possibility of him having a sleep disorder. He has a previous diagnosis of moderate obstructive sleep apnea with an AHI of 21.7 in 2013 here at [facility]. His current complaints are insomnia, unrefreshed sleep, snoring, excessive daytime sleepiness, observed pauses in breathing, fatigue and frequent night awakenings. He states his CPAP machine was recalled and he stopped using it. He did not register the machine with [employer]. He states he was having difficulty with a continuous cough and a very dry throat when using the device. This also encouraged him to stop using the device. He states his doctor has sent him here to get reevaluation and help with his sleep apnea. His blood pressure is high. He states he did have some positive results from wearing his CPAP but did have problems with keeping the mask on his face because he has PTSD. He would take the mask off when asleep or just not tolerate it on his face because he felt claustrophobic. - Parasomnia Symptoms Ever been unable to move upon waking from sleep: Yes (rarely) Walks in sleep: No Talks in sleep: Yes Ever acted out dreams in sleep: Yes Ever felt weak in the knees when startled or emotional: Yes Bothered by creepy, crawly, restless sensations in legs: Yes (when laying down and occ. when sitting) Problems with memory or concentration: Yes (both) Subjective Initial [place] Sleepiness Scale score: 17 (11/11/22) Past Medical History Past Medical History: reports: Hypertension, Dysphagia, Claustrophobia, Congestive Heart Failure, Diabetes, Arthritis, Fibromyalgia, Anxiety, Impotence, Depression, Emphysema, Mood disorder (PTSD), GERD, Other (heart murmur) Social History The patient's occupation is a RE. Patient is and lives in [place]. Have you smoked in the past 12 months: No Cigarettes per day (20/pack): 20 Years of smokin Quit date: 1997 Smoking Pack Years: 21.0 Alcohol use: No Caffeine use: Yes Caffeine amount and frequency: 12 OZ 2-3 X PER WEEK Family History Family history of sleep disordered breathing: No Allergies and Home Medications Known drug allergies: Yes (BEDNEDINE, PERCOCET, LATEX, ADHESIVE) Drug allergies reviewed: Yes Home medication list reviewed: Yes (see updated list in EMR) Allergy and home medication list: Allergies propoxyphene HCl * [From Darvon] Adverse Reaction (Unknown, Verified 11/11/22 14:17) Nausea codeine Adverse Reaction (Verified 11/11/22 14:17) Diaphoresis oxycodone Adverse Reaction (Verified 11/11/22 14:17) Hallucinations Review of Systems Weight gain over past 5 years: 130 Weight loss over past 5 years: 30 lb in last 6 months Cardiovascular: reports: high blood pressure Respiratory: reports: shortness of breath Gastrointestinal: reports: heartburn, difficulty swallowing, nausea, diarrhea, abdominal pain Urinary: reports: incontinence, urgency, impotence Neurological: reports: headaches, disorientation, gait or balance problems, fainting or unconsciousness Psychiatric: reports: anxiety, depression, mood disorder, claustrophobia, other (PTSD) Ear/Nose/Throat: reports: sinus problems, dry mouth/throat, wisdom teeth removed (still has two left). denies: tonsillectomy Endocrine: reports: sluggishness Musculoskeletal: reports: joint pain, neck pain, back pain, muscle pain or cramping, mobility problems Immunologic: reports: rash, allergies to food or environment Physical Exam Vital signs obtained and entered by: KILO Ware MA Blood Pressure: 124/64 (LEFT ARM) Cuff size: long Heart Rate: 84 O2 Saturation: 96 Height: 5 ft 11 in Weight: 318 lb 6.4 oz Body Mass Index: 44.4 BMI Classification: Morbidly Obese Neck circumference: 17.75 Mouth and throat: narrow oropharynx Soft palate: long Hard palate: normal Uvula: normal Uvula visualization: 25% Mallampati Class III Tongue: enlarged in size with teeth monroy on lateral edges Tonsils: 1+ Heart: regular rate and rhythm, murmur Lungs: clear bilaterally Impression and Plan 1. Suspected Obstructive Sleep Apnea-Hypopnea Syndrome, as previously diagnosed and as suggested by a history of loud and irregular snoring, observed cessation of breath while asleep, morning headache, frequent awakening during the night, unrefreshed sleep, cognitive impairment, and excessive daytime sleepiness. He has gained 100 pounds in the last 5 years. He has not used a CPAP for about 2 years. I recommend proceeding to polysomnography to confirm the diagnosis and to assess severity. If the patient has significant sleep disordered breathing, a manual CPAP titration study will also be performed to find the optimal treatment pressure. I obtained agreement to proceed. The pathophysiology of obstructive sleep apnea-hypopnea syndrome was discussed with the patient and health risks of cardiovascular and cerebrovascular disease if not treated. Risks of drowsy d riving discussed in detail and patient advised to avoid long distance driving and to planting material remover at the first sign of drowsiness. Patient agreed to plan. * Schedule polysomnography +- manual CPAP titration study and return in 1-2 weeks after the study to discuss result and initiate therapy. * Avoid long distance driving or driving when feeling sleepy. * Avoid alcohol, sedative and muscle relaxant around bedtime. * Attempt to lose weight. * Review instructions provided by trained office staff on how to prepare for the sleep study. * Return for follow-up after sleep study completed. Counseling Topics: Weight loss health impact Visit Type: In Office Time Spent with Patient (minutes): 31 Provider Statement: I spent 100% of the Face to Face Visit with the patient with greater than 50% spent counseling the patient and coordination of care.
[2022-11-12 13:58] VITALS: BP 124/64
== END 2022-11-12 13:00 | disposition home or self-care (01) ==
LOC: SC 12:59
PROVIDERS: ATTEND Nurse Practitioner Family
DX: G47.33 Obstructive sleep apnea (adult) (pediatric) (principal); E66.01 Morbid (severe) obesity due to excess calories; Z68.41 Body mass index [BMI] 40.0-44.9, adult; Z87.891 Personal history of nicotine dependence
CPT/HCPCS: 99203; G0463; 99212

== ENCOUNTER 2022-11-26 19:22 | Outpatient (CLI) | payer MEDICARE, OTHER | END 2022-11-26 19:23 | disposition home or self-care (01) | LOC: SC 19:22 | PROVIDERS: ATTEND Nurse Practitioner Family | DX: G47.33 Obstructive sleep apnea (adult) (pediatric) (principal); G47.61 Periodic limb movement disorder; E66.01 Morbid (severe) obesity due to excess calories; Z68.41 Body mass index [BMI] 40.0-44.9, adult | CPT/HCPCS: 95810 ==

== ENCOUNTER 2022-12-17 08:48 | Outpatient (CLI) | payer MEDICARE, OTHER ==
--- NOTE | 2022-12-17 09:41 | SLEEP CARE CONSULTATION ---
Information from patient questionnaire entered by Dinah Cordova. I have reviewed and concur with the information entered by Dinah Cordova. This document represents the service I personally performed and the decisions made by , Angie Ceja ARNP. History of Present Illness Service Date and Time: 12/17/2022 0848 Initial [place] Sleepiness Scale score: 17 (11/11/22) Current [place] Sleepiness Scale score: 14 (12/17/22) Additional HPI information: ROSALINDA MCMAHAN returns for follow up and results of the recently performed polysomnography. Patient's sleep study showed moderate obstructive sleep apnea with an average AHI of 26.2 and alma oxygen saturation of 80%. He also had severe periodic leg movements of sleep that did contribute to sleep fragmentation. I explained the pathophysiology behind obstructive sleep apnea. We then spent quite a bit of time discussing different treatment options. For mild obstructive sleep apnea, surgery and oral appliance are alternatives to nasal CPAP therapy but in moderate or severe cases, nasal CPAP is the most effective and reliable treatment. Because apnea is primarily in supine position, then positional management therapy could be effective. Methods discussed such as positioning with pillows, using a T-shirt with tennis balls in the back or commercial products that have a pillow format on back to prevent supine sleep. I reviewed the impact of weight changes on sleep apnea and strongly recommended losing weight. After some discussion, the patient opted to restart the nasal CPAP therapy. Nasal autoCPAP set at [id number] will be ordered with rationale explained. A manual titration study will be ordered if unable to find optimal pressure with office adjustments. Patient does not drink alcohol. Patient was cautioned about risks of drowsy driving until sleepiness symptoms resolve. Patient denies drowsy driving. Sleep Study - Results Type of Sleep Study: Polysomnography (COMPLETED 11/26/22) Prior sleep studies: Yes Year and Where: [facility] 2012 Polysomnography/Home Sleep Study results: Impression: The quality of the study is good. The patient had normal sleep efficiency. The sleep architecture was abnormal for sleep fragmentation and reduced amount of time spent in slow-wave sleep (N3). Respiratory monitoring showed moderate obstructive sleep apnea (AHI = 26.2) Associated with frequent arousals, oxyhemoglobin desaturation and mild hypoxia (al[place] oxygen saturation of 80%). The respiratory events occurred more frequently during supine sleep (supine AHI = 53.4; non-supine = 16.2). Snore was like to very loud in intensity. There was severe periodic leg movement of sleep not contributing to the sleep fragmentation. Cardiac rhythm was normal sinus rhythm without significant arrhythmia. No abnormal behavior (parasomnia) observed during the night. Allergies and Home Medications Known drug allergies: Yes (as listed) Drug allergies reviewed: Yes Home medication list reviewed: Yes (no changes) Allergy and home medication list: Allergies propoxyphene HCl * [From Darvon] Adverse Reaction (Unknown, Verified 12/16/22 13:41) Nausea codeine Adverse Reaction (Verified 12/16/22 13:41) Diaphoresis oxycodone Adverse Reaction (Verified 12/16/22 13:41) Hallucinations Review of Systems Review of systems same as previous: Yes (no changes) Physical Exam Vital signs obtained and entered by: DINAH Ware MA Blood Pressure: 126/70 (LEFT ARM) Cuff size: long Heart Rate: 68 O2 Saturation: 98 Height: 5 ft 11 in Weight: 313 lb Body Mass Index: 43.6 BMI Classification: Morbidly Obese Impression and Plan 1. Obstructive Sleep Apnea-Hypopnea Syndrome, moderate, with lowest oxygen saturation of 80%. Obviously this is the cause of the patients symptoms of unrefreshed sleep, and excessive daytime sleepiness. Positive pressure therapy could benefit hypertension, cardiac disease (CHF), diabetes, fibromyalgia, anxiety, depression, PTSD and gastric reflux. As mentioned above, the patient will be started on nasal autoCPAP therapy with pressure set at 5-15 cmH2O. A manual titration study will be completed if unable to find optimal treatment pressure with office adjustments. Compliance guidelines also reviewed. A copy of compliance guidelines will be given for reference at check out. Because the apnea is more severe supine, I instructed to avoid sleeping supine using pillow positioning until able to start CPAP use. 2. Hypoxemia, mild, with a alma oxygen saturation of 80% and 13.2 minutes spent under 90%. His baseline oxygen saturation was normal with an average oxygen saturation of 94%. 3. Periodic limb movement, severe, that did contribute to fragmentation of the patients sleep. Periodic limb movement of sleep (PLMS) is characterized by epi sodes of repetitive limb movements that occur during sleep and usually involve the lower limbs. The etiology is unknown. Caffeine can aggravate PLMS and should be avoided. Sleep hygiene methods can also improve sleep as well as lifestyle changes such as regular exercise. Patient was advised that no treatment is needed at this time. If symptoms increase, then further evaluation is indicated. * Nasal auto CPAP therapy, pressure at 5-15 cm H2O. * Attempt to lose weight. * Avoid alcohol consumption near bedtime. * Avoid supine sleep until using CPAP. * The patient is again cautioned about driving until sleepiness completely resolves. * Return one month after CPAP obtained. I will assess response to therapy and compliance at that time. Counseling Topics: Weight loss health impact Prescriptions: Auto CPAP Visit Type: In Office Time Spent with Patient (minutes): 20 Provider Statement: I spent 100% of the Face to Face Visit with the patient with greater than 50% spent counseling the patient and coordination of care.
--- NOTE | 2022-12-17 09:42 | Sleep Patient Instructions ---
Sleep Center Visit Summary - Patient Visit Information Reason for Visit: Sleep study followup - Patient Instructions Additional Instructions: You are being started on CPAP therapy with pressure setting at 5-15 cmH2O. You will need to call the sleep care office to set up your follow up once you have your APAP machine and we will schedule a visit to check compliance and response to therapy at that time. You may call the office with any concerns about pressure feeling too low or too much for adjustment, if needed. You should contact DME for any questions or concerns about mask or equipment. Please follow up in the sleep care office a month after obtaining new device. - Clinic Information Contact: [facility] [address] [place] [address] [email or web address] T: [phone]
[2022-12-17 09:46] VITALS: BP 126/70
== END 2022-12-17 08:49 | disposition home or self-care (01) ==
LOC: SC 08:48
PROVIDERS: ATTEND Nurse Practitioner Family
DX: G47.33 Obstructive sleep apnea (adult) (pediatric) (principal); R09.02 Hypoxemia; G47.61 Periodic limb movement disorder; E66.01 Morbid (severe) obesity due to excess calories; Z68.41 Body mass index [BMI] 40.0-44.9, adult
CPT/HCPCS: 99213; G0463; 99212

== ENCOUNTER 2023-03-30 15:27 | Outpatient (CLI) | payer MEDICARE, OTHER ==
--- NOTE | 2023-03-30 16:17 | Sleep Patient Instructions ---
Sleep Center Visit Summary - Patient Visit Information Reason for Visit: First compliance with CPAP therapy - Patient Instructions Additional Instructions: You were here for follow up of CPAP therapy. You will be continued on CPAP therapy with pressure at 12-16 cmH2O. Please let us know if the pressure change is uncomfortable and we can make further adjustments of the pressure. You should follow up with sleep care in 1-2 months. You may contact us sooner for any questions or concerns. - Clinic Information Contact: [facility] [address] [place] [address] [email or web address] T: [phone]
--- NOTE | 2023-03-30 16:21 | SLEEP CARE CONSULTATION ---
Information from patient questionnaire entered by Kilo Cordova. I have reviewed and concur with the information entered by Kilo Cordova. This document represents the service I personally performed and the decisions made by , Angie Ceja ARNP. History of Present Illness Service Date and Time: 03/30/2023 1527 Previous diagnosis: Moderate, Obstructive Sleep Apnea-Hypopnea Syndrome AHI: 26.2 (in 11/2022) Reason for follow up: first compliance (RESMED SET UP 12/31/22) Equipment type: CPAP (RESMED Airsense 11; SET UP 12/31/22) Equipment obtained from: Other ([facility]) Mask style: Nasal (3B Siesta, large cushion) Backup mask available: No (will keep old mask when replaced) Last cushion change: 1 month or so Prior sleep studies: Yes Year and Where: [facility] 2012 Type of Sleep Study: Polysomnography (COMPLETED 11/26/22) HPI additional information: ROSALINDA MCMAHAN was diagnosed to have moderate, AHI 26.2, obstructive sleep apnea- hypopnea syndrome and returned today for CPAP therapy first compliance follow- up. Sleep Study - Results Type of Sleep Study: Polysomnography (COMPLETED 11/26/22) Prior sleep studies: Yes Year and Where: [facility] 2012 CPAP Compliance Data - Data Reviewed with Patient Average duration of nightly device use: 6 HRS 28 MIN Compliance rate %: 73 (02/26/23-03/27/23; 28/30 days used) Current pressure setting (cmH2O): 5-15 (median 7.6, avg 11.6, max 12.9) Average residual AHI: 6.1 Central apnea: 0.6 Obstructive apnea: 3.3 Hypopnea: 1.9 Average large leak: 8.4 L/min Subjective Missed days of use due to: reports: illness Patient concerns: reports: air blowing in eyes (when needs adjustment; improves), nasal congestion (comes and goes; has seasonal allergies), dry mouth, nose, throat. denies: aerophagia, mask discomfort, mask leak noise, condensation in mask/hose, epistaxis Observed to snore while using device: No Current pressure setting perceived as: comfortable On therapy, patient: reports: sleeping better, awakening more refreshed, being more awake and alert during the day, more rested overall. denies: drowsiness while driving Initial [place] Sleepiness Scale score: 17 (11/11/22) Current [place] Sleepiness Scale score: 7 (03/30/23) Allergies and Home Medications Known drug allergies: Yes (as listed) Drug allergies reviewed: Yes Home medication list reviewed: Yes (no changes) Allergy and home medication list: Allergies propoxyphene HCl * [From Darvon] Adverse Reaction (Unknown, Verified 03/29/23 13:45) Nausea codeine Adverse Reaction (Verified 03/29/23 13:45) Diaphoresis oxycodone Adverse Reaction (Verified 03/29/23 13:45) Hallucinations Review of Systems Review of systems same as previous: Yes (no changes) Physical Exam Vital signs obtained and entered by: KILO Ware MA Blood Pressure: 121/49 (RIGHT ) Cuff size: wrist Heart Rate: 75 O2 Saturation: 97 Height: 5 ft 11 in Weight: 322 lb 3.2 oz (.) Body Mass Index: 44.9 BMI Classification: Morbidly Obese Impression and Plan 1. Obstructive Sleep Apnea-Hypopnea Syndrome, moderate, with good treatment compliance and fair apnea control with elevated residual AHI. On CPAP therapy, the patient has better sleep quality and is more rested overall. Patient has significant improvement of their sleep apnea and is satisfied with current CPAP therapy. Patient has had some dry mouth and is oral venting. I encouraged him to try a chinstrap to keep his mouth closed since he does like the nasal cushion mask that he is using. He voiced understanding. The patients pressure will be changed to autoCPAP 12-16 cmH20 to reflect pressure being used and for elevated residual AHI. Patient advised to contact me if pressure change is uncomfortable so that it can be adjusted. Goals for apnea control discussed. Patient's apnea severity and rationale for treatment to reduce apnea, improve sleep quality and reduce cardiovascular and cerebrovascular events was reviewed. I also reviewed the benefit of consistent device use of CPAP for hypertension, cardiac disease (CHF), diabetes, gastric reflux, depression, anxiety and mood disorder (PTSD). 2. Obesity, unspecified. Currently patients BMI is 44.9. Obesity increases the risk of apnea, CPAP pressure requirements and overall health risks especially cardiovascular and diabetes. Thus patient is advised to lose weight. * Change auto CPAP pressure to 12-16 cmH2O * Notify me if snoring with mask or feeling that the pressure is too much or too little * Attempt to lose weight * Call this office if any problems using CPAP * Return for follow up in 1-2 months, or sooner if concerns arise Counseling Topics: Spare mask, Weight loss health impact Follow up with Sleep Care in: 1-2 months Visit Type: In Office Time Spent with Patient (minutes): 20 Provider Statement: I spent 100% of the Face to Face Visit with the patient with greater than 50% spent counseling the patient and coordination of care.
[2023-03-30 17:06] VITALS: BP 121/49; O2SAT 97
== END 2023-03-30 15:28 | disposition home or self-care (01) ==
LOC: SC 15:27
PROVIDERS: ATTEND Nurse Practitioner Family
DX: G47.33 Obstructive sleep apnea (adult) (pediatric) (principal); E66.01 Morbid (severe) obesity due to excess calories; Z68.41 Body mass index [BMI] 40.0-44.9, adult
CPT/HCPCS: 99213; G0463; 99212

== ENCOUNTER 2023-05-05 16:27 | Outpatient (CLI) | payer MEDICARE, OTHER ==
--- NOTE | 2023-05-05 16:10 | SLEEP CARE CONSULTATION ---
Information from patient questionnaire entered by Kilo Cordova. I have reviewed and concur with the information entered by Kilo Cordova. This document represents the service I personally performed and the decisions made by , Angie Ceja ARNP. History of Present Illness Service Date and Time: 05/05/2023 1600 Previous diagnosis: Moderate, Obstructive Sleep Apnea-Hypopnea Syndrome AHI: 26.2 Reason for follow up: other (ONE MONTH F/U) Equipment type: CPAP (RESMED Airsense 11, s/u ) Equipment obtained from: Other ([facility], getting supplies) Mask style: Nasal (over the nose) Mask brand: 3B Siesta Backup mask available: No (will keep old mask when replaced) Last cushion change: couple months [facility]: [facility] Type of Sleep Study: Polysomnography (COMPLETED 11/26/22) HPI additional information: ROSALINDA MCMAHAN was diagnosed to have moderate, AHI 26.2, obstructive sleep apnea- hypopnea syndrome and returns via telephone visit today for CPAP therapy one month with pressure change follow-up. Sleep Study - Results Type of Sleep Study: Polysomnography (COMPLETED 11/26/22) Prior [facility]: Yes [facility] CPAP Compliance Data - Data Reviewed with Patient Average duration of nightly device use: 5 HRS 2 MINS Compliance rate %: 67 (04/03/23-05/02/23; 29/30 days used) Current pressure setting (cmH2O): 5-15 (median 8.2, avg 11.3, max 12.5) Average residual AHI: 5.4 Central apnea: 0.2 Obstructive apnea: 2.7 Hypopnea: 2.2 Average large leak: 6.7 L/min Subjective Missed days of use due to: reports: travel Patient concerns: denies: aerophagia, mask discomfort, mask leak noise, condensation in mask/hose, nasal congestion, dry mouth, nose, throat, epistaxis Observed to snore while using device: No Current pressure setting perceived as: comfortable On therapy, patient: reports: sleeping better, awakening more refreshed, being more awake and alert during the day, more rested overall. denies: drowsiness while driving Initial [place] Sleepiness Scale score: 17 (11/11/22) Current [place] Sleepiness Scale score: 9 (05/05/23) Allergies and Home Medications Known drug allergies: Yes (as listed) Drug allergies reviewed: Yes Home medication list reviewed: Yes (no changes) Allergy and home medication list: Allergies propoxyphene HCl * [From Darvon] Adverse Reaction (Unknown, Verified 05/04/23 10:28) Nausea codeine Adverse Reaction (Verified 05/04/23 10:28) Diaphoresis oxycodone Adverse Reaction (Verified 05/04/23 10:28) Hallucinations Review of Systems Review of systems same as previous: Yes (NO CHANGE) Physical Exam Vital signs obtained and entered by: KILO Ware MA Blood Pressure: 127/69 (PER PT) Height: 5 ft 11 in (PER PT) Weight: 300 lb (PER PT) Body Mass Index: 41.8 BMI Classification: Morbidly Obese Impression and Plan 1. Obstructive Sleep Apnea-Hypopnea Syndrome, moderate, with fair treatment compliance and good apnea control with minimally elevated residual AHI. On CPAP therapy, the patient has better sleep quality and is more rested overall. The patients pressure will be changed to autoCPAP 12-15 cmH20 for elevation of residual AHI. Patient advised to contact me if pressure change is uncomfortable so that it can be adjusted. Goals for apnea control discussed. Patient's apnea severity and rationale for treatment to reduce apnea, improve sleep quality and reduce cardiovascular and cerebrovascular events was reviewed. I also reviewed the benefit of consistent device use of CPAP for hypertension, cardiac disease (CHF), diabetes, gastric reflux, depression, anxiety and PTSD. 2. Obesity, unspecified. Currently patients BMI is 41.8. Obesity increases the risk of apnea, CPAP pressure requirements and overall health risks especially cardiovascular and diabetes. Thus patient is advised to lose weight. * Change auto CPAP pressure to 12-15 cmH2O * Notify me if snoring with mask or feeling that the pressure is too much or too little * Attempt to lose weight * Call this office if any problems using CPAP * Return for follow up in 1-2 months, or sooner if concerns arise Counseling Topics: Spare mask, Weight loss health impact Follow up with Sleep Care in: 1-2 months Visit Type: Telehealth Phone Video Type: Doximity Patient Location: Home Location of Provider: Office Patient agrees and consents to this telehealth visit type: Yes Patient agrees to have their insurance billed: Yes Time Spent with Patient (minutes): 13 Provider Statement: I spent 100% of the Telehealth Phone Call with the patient with greater than 50% spent counseling the patient and coordination of care.
[2023-05-05 16:19] VITALS: BP 127/69
== END 2023-05-05 16:28 | disposition home or self-care (01) ==
LOC: SC 16:27
PROVIDERS: ATTEND Nurse Practitioner Family
DX: G47.33 Obstructive sleep apnea (adult) (pediatric) (principal); E66.01 Morbid (severe) obesity due to excess calories; Z68.41 Body mass index [BMI] 40.0-44.9, adult
CPT/HCPCS: 99442

== ENCOUNTER 2023-07-15 14:06 | Outpatient (CLI) | payer MEDICARE, OTHER ==
--- NOTE | 2023-07-15 13:59 | SLEEP CARE CONSULTATION ---
Information from patient questionnaire entered by Dinah Cordova. I have reviewed and concur with the information entered by Dinah Cordova. This document represents the service I personally performed and the decisions made by me, Angie Ceja ARNP. History of Present Illness Service Date and Time: 07/15/2023 1340 Previous diagnosis: Moderate, Obstructive Sleep Apnea-Hypopnea Syndrome AHI: 26.2 Reason for follow up: other (2 MONTH F/U) Equipment type: CPAP (RESMED Airsense 11, s/u ) Equipment obtained from: Other ([facility], getting supplies) Mask style: Nasal (over the nose) Backup mask available: Yes Last cushion change: couple weeks ago Prior sleep studies: Yes Year and Where: [facility] 2012 Type of Sleep Study: Polysomnography (COMPLETED 11/26/22) HPI additional information: ROSALINDA MCMAHAN was diagnosed to have moderate, AHI 26.2, obstructive sleep apnea- hypopnea syndrome and returns via telephone visit today for CPAP therapy two months with pressure change follow-up. Sleep Study - Results Type of Sleep Study: Polysomnography (COMPLETED 11/26/22) Prior sleep studies: Yes Year and Where: [facility] 2012 CPAP Compliance Data - Data Reviewed with Patient Average duration of nightly device use: 6 HRS 18 MINS Compliance rate %: 73 (05/14/23-07/12/23; 54/60 days used) Current pressure setting (cmH2O): 12-15 (as listed online) Average residual AHI: 5.0 Central apnea: 1.1 Obstructive apnea: 1.4 Hypopnea: 1.6 Average large leak: 24 L/min Subjective Missed days of use due to: reports: illness Patient concerns: denies: aerophagia, mask discomfort, air blowing in eyes, mask leak noise, condensation in mask/hose, nasal congestion, dry mouth, nose, throat, epistaxis Observed to snore while using device: No Current pressure setting perceived as: comfortable On therapy, patient: reports: sleeping better, awakening more refreshed, being more awake and alert during the day, more rested overall. denies: drowsiness while driving Initial [place] Sleepiness Scale score: 17 (11/11/22) Current [place] Sleepiness Scale score: 6 (07/15/23) Allergies and Home Medications Known drug allergies: Yes (as listed) Drug allergies reviewed: Yes Home medication list reviewed: Yes (no changes) Allergy and home medication list: Allergies propoxyphene HCl * [From Darvon] Adverse Reaction (Unknown, Verified 07/13/23 15:28) Nausea codeine Adverse Reaction (Verified 07/13/23 15:28) Diaphoresis oxycodone Adverse Reaction (Verified 07/13/23 15:28) Hallucinations Review of Systems Review of systems same as previous: Yes (no changes) Physical Exam Vital signs obtained and entered by: SATISH HURTADO Blood Pressure: 120/69 (PER PT) Heart Rate: 82 (PER PT) Height: 5 ft 11 in (PER PT) Weight: 300 lb (PER PT) Body Mass Index: 41.8 BMI Classification: Morbidly Obese Impression and Plan 1. Obstructive Sleep Apnea-Hypopnea Syndrome, moderate, with good treatment compliance and good apnea control. On CPAP therapy, the patient has better sleep quality and is more rested overall. Patient has significant improvement of his sleep apnea although his pressure is minimally ineffective with an average residual AHI of 5. Patient feels the pressure is much more comfortable than it was before and so I am not going to adjust the pressure today. Patient is feeling comfortable with CPAP therapy and plans on using it long-term. We will follow-up with him in about 6 months. Patient's apnea severity and rationale for treatment to reduce apnea, improve sleep quality and reduce cardiovascular and cerebrovascular events was reviewed. I also reviewed the benefit of consistent device use of CPAP for hypertension, cardiac disease (CHF), diabetes, gastric reflux, depression, anxiety and mood disorder (PTSD). 2. Obesity, unspecified. Currently patients BMI is 41.8. Obesity increases the risk of apnea, CPAP pressure requirements and overall health risks especially cardiovascular and diabetes. Thus patient is advised to lose weight. * Continue auto CPAP pressure at 12-15 cmH2O * Notify me if snoring with mask or feeling that the pressure is too much or too little * Attempt to lose weight * Call this office if any problems using CPAP * Return for follow up in 6 months, or sooner if concerns arise Counseling Topics: Weight loss health impact Follow up with Sleep Care in: 6 months Visit Type: Telehealth Phone Video Type: Doximity Patient Location: Home Location of Provider: Office Patient agrees and consents to this telehealth visit type: Yes Patient agrees to have their insurance billed: Yes Time Spent with Patient (minutes): 12 Provider Statement: I spent 100% of the Telehealth Phone Call with the patient with greater than 50% spent counseling the patient and coordination of care.
[2023-07-15 14:02] VITALS: BP 120/69
== END 2023-07-15 14:07 | disposition home or self-care (01) ==
LOC: SC 14:06
PROVIDERS: ATTEND Nurse Practitioner Family
DX: G47.33 Obstructive sleep apnea (adult) (pediatric) (principal); E66.01 Morbid (severe) obesity due to excess calories; Z68.41 Body mass index [BMI] 40.0-44.9, adult
CPT/HCPCS: 99442

== ENCOUNTER 2023-10-24 16:12 | Outpatient (CLI) | payer MEDICARE, OTHER ==
--- NOTE | 2023-10-25 09:08 | XRAY Report ---
PROCEDURE: Chest 2V INDICATIONS: DYSPNEA TECHNIQUE: 2 views of the chest were acquired. COMPARISON: Chest x-ray, 03/05/2018, 08/04/2017. FINDINGS: Surgical changes and devices: None. Lungs and pleura: There is interstitial prominence. Subpleural densities in right and left midlung z one and right lower lung zone are most likely scars and atelectasis. Blunting of the right costophren ic angle may be secondary to trace pleural effusion or pleural scarring. No pleural effusions or pneu mothorax. Mediastinum: Mediastinal contours appear normal. Heart size is normal. Bones and chest wall: Old right inferior fractures noted. No suspicious bony lesions. Overlying sof t tissues appear unremarkable. IMPRESSION: 1. Trace pleural effusion or pleural scarring in the right hemithorax. 2. Bilateral subpleural scars and atelectasis. 3. Old right rib fractures. Reviewed by: Jorge Ross MD on 10/25/2023 9:07 AM PDT Approved by: Jorge Ross MD on 10/25/2023 9:07 AM PDT Station ID: [id number]
== END 2023-10-24 16:13 | disposition home or self-care (01) ==
LOC: DI 16:12
PROVIDERS: ATTEND Student in an Organized Health Care Education/Training Program
DX: J90 Pleural effusion, not elsewhere classified (principal); J98.11 Atelectasis

== ENCOUNTER 2023-11-29 13:04 | Outpatient (CLI) | payer MEDICARE, OTHER | END 2023-11-29 23:59 | disposition critical access hospital (66) | LOC: EMS 13:04 | DX: R06.02 Shortness of breath (principal); R04.2 Hemoptysis; R07.1 Chest pain on breathing; R06.01 Orthopnea | CPT/HCPCS: A0425; A0429 ==

== ENCOUNTER 2023-11-29 13:23 | Emergency (ER) | payer MEDICARE, OTHER ==
[2023-11-29 13:54] LABS: BASOPHILS % (AUTO) 0.4 %; EOSINOPHILS # (AUTO) 0.1 10^3/uL (0.0-0.7); EOSINOPHILS % (AUTO) 1.7 %; HGB - HEMOGLOBIN 10.1 g/dL (14.0-18.0); LYMPHOCYTES # (AUTO) 0.8 10^3/uL (1.5-3.5); LYMPHOCYTES % (AUTO) 16.2 %; MEAN CORPUSCULAR HEMOGLOBIN 28.5 pg (27.0-31.0); MEAN CORPUSCULAR HGB CONC 32.6 g/dL (32.0-36.0); MEAN CORPUSCULAR VOLUME 87.6 fL (80.0-94.0); MEAN PLATELET VOLUME 8.8 fL (7.4-11.4); MONOCYTES # (AUTO) 0.4 10^3/uL (0.0-1.0); MONOCYTES % (AUTO) 7.9 %; NEUTROPHILS # (AUTO) 3.6 10^3/uL (1.5-6.6); NEUTROPHILS % (AUTO) 73.6 %; PLT - PLATELET COUNT 110 10^3/uL (130-450); RED BLOOD COUNT 3.54 10^6/uL (4.70-6.10); RED CELL DISTRIBUTION WIDTH 13.2 % (12.0-15.0); WHITE BLOOD COUNT 4.8 x10^3/uL (4.8-10.8)
[2023-11-29 14:08] LABS: ALBUMIN/GLOBULIN RATIO 1.5 (1.0-2.2); BILIRUBIN,TOTAL 0.6 mg/dL (0.2-1.0); CALCIUM 8.9 mg/dL (8.5-10.3); CREATININE 1.2 mg/dL (0.6-1.3); POTASSIUM 3.4 mmol/L (3.5-4.5); TOTAL PROTEIN 6.7 g/dL (6.4-8.9)
--- NOTE | 2023-11-29 14:21 | XRAY Report ---
PROCEDURE: Chest 1V INDICATIONS: Chest pain TECHNIQUE: One view of the chest was acquired. COMPARISON: 10/24/2023 FINDINGS: Surgical changes and devices: None. Lungs and pleura: Possible linear opacities at the lung bases. No dense airspace disease or pleural effusion. Mediastinum: Cardiac mediastinal contours are unchanged. Bones and chest wall: Suspected old right rib fractures, not well evaluated on this study. IMPRESSION: Bilateral lower lung linear opacities, likely atelectasis/scarring. No dense airspace disease or pleu ral effusions on this limited single view radiograph. Possible old right rib fractures. Reviewed by: Chuck Meza MD on 11/29/2023 2:20 PM PDT Approved by: Chuck Meza MD on 11/29/2023 2:20 PM PDT Station ID: [id number]
--- NOTE | 2023-11-29 15:46 | ED Physician Documentation ---
PD HPI DYSPNEA - Stated complaint Stated Complaint: SOA - Chief complaint Chief Complaint: Resp - History obtained from History obtained from: Patient - History of Present Illness Timing - onset: How many weeks ago (has had cough and increased dyspnea for 2-3 weeks. much more symptomatic cough the past 3 days (since Tuesday).) Timing - onset during: Rest, Light activity Timing - details: Gradual onset, Still present (onset of coughing with dyspnea on eactivity. Repetitive coughing leading to poor sleep.) Inciting event(s): URI Improved by: Rest. No: Sitting up Worsened by: Coughing. No: Laying flat Associated symptoms: Cough, Hemoptysis (traces of blood with cough last night and this morning.), Wheezing, Bilateral edema (chronic without increase). No: Chest pain / discomfort, Palpitations Review of Systems Constitutional: reports: Chills, Myalgias Nose: reports: Congestion Cardiac: denies: Chest pain / pressure, Calf pain Respiratory: reports: Dyspnea, Cough, Wheezing Endocrine: denies: Weight gain PD PAST MEDICAL HISTORY - Past Medical History Past Medical History: Yes Cardiovascular: Congestive heart failure, Hypertension, High cholesterol Respiratory: Sleep apnea, CPAP use Neuro: Other Endocrine/Autoimmune: Type 2 diabetes GI: Pancreatitis : None HEENT: Chronic vision loss Psych: Post traumatic stress disorder Musculoskeletal: Osteoarthritis Other Past Medical History: "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" - Past Surgical History Past Surgical History: No General: Cholecystectomy Ortho: Knee replacement - Present Medications Home Medications: Ambulatory Orders Medication Instructions Recorded Confirmed Aspirin 325 mg PO 209912/28/12 07/15/23 Prazosin [Minipress] 5 mg PO DAILY 12/28/12 07/15/23 Sertraline [Zoloft] 100 mg PO DAILY 12/28/12 07/15/23 Furosemide 20 mg PO DAILY 08/15/14 07/15/23 Insulin Glargine,Hum.rec.anlog 50 units SQ 209910/01/15 07/15/23 [Lantus] Insulin Aspart [NovoLOG] 20 unit SUBQ TIDWM 11/12/16 07/15/23 Pantoprazole [Protonix] 40 mg PO BID 11/12/16 07/15/23 Lipase/Protease/Amylase [Marc Dr See Rx Instructions .ROUTE .COMPLEX 11/12/22 07/15/23 12,000 Unit Capsule] Losartan [Cozaar] See Rx Instructions .ROUTE .COMPLEX 11/12/22 07/15/23 amLODIPine [Norvasc] See Rx Instructions .ROUTE .COMPLEX 11/12/22 07/15/23 Albuterol Sulf [Ventolin Hfa 2 - 3 puffs INH QID #1 each 11/29/23 Inhaler] Amox/Clav 875/125 [Augmentin] 1 each PO BID #10 tablet 11/29/23 Benzonatate [Tessalon] 100 mg PO TID PRN #20 cap 11/29/23 dexAMETHasone [Decadron] 4 mg PO DAILY #5 tablet 11/29/23 - Allergies Allergies/Adverse Reactions: Allergies Allergy/AdvReac Type Severity Reaction Status Date / Time propoxyphene HCl * AdvReac Unknown Nausea Verified 11/29/23 13:34 [From Darvon] codeine AdvReac Diaphoresis Verified 11/29/23 13:34 oxycodone AdvReac Hallucinati Verified 11/29/23 13:34 ons - Social History Does the pt smoke?: Yes Smoking Status: Former smoker Does the pt drink ETOH?: No Does the pt have substance abuse?: No - Immunizations Immunizations are current?: Yes - POLST Patient has POLST: No PD ED PE NORMAL - Vitals Vital signs reviewed: Yes - General General: Alert and oriented X 3, No acute distress, Well developed/nourished - HEENT HEENT: Moist mucous membranes, Pharynx benign - Neck Neck: Supple, no meningeal sign, No adenopathy - Cardiac Cardiac: RRR, No murmur - Respiratory Respiratory: No respiratory distress. No: Clear bilaterally (mild exp wheezing noted with diminished tidal volume. No exudates heard. ) Results - Vitals Vitals: Oxygen O2 Source Room air - Labs Labs: Laboratory Tests 11/29/23 11/29/23 11/29/23 13:49 13:49 16:28 WBC 4.8 RBC 3.54 L Hgb 10.1 L Hct 31.0 L MCV 87.6 MCH 28.5 MCHC 32.6 RDW 13.2 Plt Count 110 L MPV 8.8 Neut # (Auto) 3.6 Lymph # (Auto) 0.8 L Troup # (Auto) 0.4 Eos # (Auto) 0.1 Baso # (Auto) 0.0 Absolute Nucleated RBC 0.00 Nucleated RBC % 0.0 Sodium 141 Potassium 3.4 L Chloride 108 Carbon Dioxide 26 Anion Gap 7.0 BUN 18 Creatinine 1.2 Estimated GFR (MDRD) 59 L Glucose 95 Calcium 8.9 Total Bilirubin 0.6 AST 14 ALT 10 Alkaline Phosphatase 52 Troponin I High Sens 7.0 Total Protein 6.7 Albumin 4.0 Globulin 2.7 Albumin/Globulin Ratio 1.5 Lipase 17 Nasal Adenovirus (PCR) NOT DETECTED Nasal B. parapertussis DNA (PCR) NOT DETECTED Nasal Coronavir 229E PCR NOT DETECTED Nasal Coronavir HKU1 PCR NOT DETECTED Nasal Coronavir NL63 PCR NOT DETECTED Nasal Coronavir OC43 PCR NOT DETECTED Nasal Enterovir/Rhinovir PCR NOT DETECTED Nasal Influenza B PCR NOT DETECTED Nasal Influenza A PCR NOT DETECTED Nasal Parainfluen 1 PCR NOT DETECTED Nasal Parainfluen 2 PCR NOT DETECTED Nasal Parainfluen 3 PCR NOT DETECTED Nasal Parainfluen 4 PCR NOT DETECTED Nasal RSV (PCR) NOT DETECTED Nasal B.pertussis DNA PCR NOT DETECTED Nasal C.pneumoniae (PCR) NOT DETECTED Mamadou Human Metapneumo PCR NOT DETECTED Nasal M.pneumoniae (PCR) NOT DETECTED Nasal SARS-CoV-2 (PCR) NOT DETECTED - Rads (name of study) chest xray Relevant Findings:: Prelim report reviewed (bibasilar infiltrates, consider scar tissue vs atelectasis. ), EMP independent interpretation of test PD Medical Decision Making - ED course Complexity details: reviewed results (bilateral lower lung opacities appearing scarring/atelectasis. ), considered differential (good sats without hypoxia here. Some wheezing on exam. CXR without new infiltrates. ), d/w patient Departure - Departure Disposition: 01 Home, Self Care Clinical Impression: Viral URI with cough, Dyspnea, Pulmonary infiltrates on CXR Condition: Stable Record reviewed to determine appropriate education?: Yes Instructions: ED Dyspnea Shortness of Breath Prescriptions: Amox/Clav 875/125 [Augmentin] 1 each PO BID #10 tablet dexAMETHasone [Decadron] 4 mg PO DAILY #5 tablet Benzonatate [Tessalon] 100 mg PO TID PRN #20 cap PRN Reason: Cough Albuterol Sulf [Ventolin Hfa Inhaler] 2 - 3 puffs INH QID #1 each Comments: Your chest x-ray does not show any signs of pneumonia and does not really look like heart failure. You do not have any notable leg edema. Your breath sounds sound more wheezy and in conjunction with the cough this sounds more like a viral or bronchial infection with inflammation of the airways and poor airflow. It does not look to be a CHF flareup. I would treat this with an albuterol inhaler 2 to 3 puffs 4 times daily. You could also try steroid anti-inflammatory daily for a few days to help with bronchial inflammation. Add benzonatate/Tessalon if needed for cough. There can be overlap of symptoms between a viral type infection versus a bacterial bronchitis. It can be reasonable to go ahead and a biotic just in case given your symptoms and concurrent medical problems. We did do a viral respiratory panel to look for the current common viruses. Results are still pending. You can look up the results online later or we can call you with any positive results later a week at the back. I sent your prescriptions to your preferred pharmacy. Forms: PCP List Discharge Date/Time: 11/29/23 17:20
[2023-11-29] MEDS: BENZONATATE 100 MG CAPSULE PO STA (16:30)
[2023-11-29] MEDS: dexAMETHasone 4 MG TABLET PO STA (16:30)
[2023-11-29] MEDS: ALBUTEROL NEB 2.5 MG/3 ML INH STA (16:46)
[2023-11-29] MEDS: AMOX/CLAV 875 MG/125 MG TABLET PO STA (17:08)
[2023-11-29 17:24] VITALS: BP 144/69; O2SAT 98
[2023-11-29 18:15] LABS: B. PARAPERTUSSIS- RESP PCR PAN NOT DETECTED; B. PERTUSSIS- RESP PCR PANEL NOT DETECTED; C. PNEUMONIAE- RESP PCR PANEL NOT DETECTED; CORONAVIRUS 229E-RESP PCR NOT DETECTED; CORONAVIRUS HKU1-RESP PCR NOT DETECTED; CORONAVIRUS NL63-RESP PCR NOT DETECTED; CORONAVIRUS OC43-RESP PCR NOT DETECTED; HUMAN METAPNEUMOVIRUS NOT DETECTED; INFLUENZA A- RESP PCR PANEL NOT DETECTED; INFLUENZA B - RESP PCR PANEL NOT DETECTED; M. PNEUMONIAE- RESP PCR PANEL NOT DETECTED; PARAINFLUENZA VIRUS 1 NOT DETECTED; PARAINFLUENZA VIRUS 2 NOT DETECTED; PARAINFLUENZA VIRUS 3 NOT DETECTED; PARAINFLUENZA VIRUS 4 NOT DETECTED; RHINOVIRUS/ENTEROVIRUS NOT DETECTED; RSV- RESP PCR PANEL NOT DETECTED; SARS-CoV-2 -RESP PCR PANEL NOT DETECTED
== END 2023-11-29 17:20 | disposition home or self-care (01) ==
LOC: EDUNIT# → ED 13:23
DX: J06.9 Acute upper respiratory infection, unspecified (principal); R91.8 Other nonspecific abnormal finding of lung field; I11.0 Hypertensive heart disease with heart failure; I50.9 Heart failure, unspecified; E78.00 Pure hypercholesterolemia, unspecified; E11.9 Type 2 diabetes mellitus without complications; Z87.891 Personal history of nicotine dependence; Z79.82 Long term (current) use of aspirin; Z79.899 Other long term (current) drug therapy; Z79.4 Long term (current) use of insulin
CPT/HCPCS: 36415; 71045; 80053; 83690; 84484; 85025; 87633; 93005; 94640; 99284; A9270; J8540

== ENCOUNTER 2024-01-13 13:24 | Outpatient (CLI) | payer MEDICARE, OTHER ==
--- NOTE | 2024-01-13 14:11 | Sleep Patient Instructions ---
Sleep Center Visit Summary - Patient Visit Information Reason for Visit: 6 month follow up - Patient Instructions Additional Instructions: You were here for follow up of CPAP therapy. You will be continued on CPAP therapy with pressure at 12-15 cmH2O. You should follow up with sleep care in 12 months. You may contact us sooner for any questions or concerns. - Clinic Information Contact: [facility] [address] [place] [address] [email or web address] T: [phone]
--- NOTE | 2024-01-13 14:14 | SLEEP CARE CONSULTATION ---
Information from patient questionnaire entered by Kilo Cordova. I have reviewed and concur with the information entered by Kilo Cordova. This document represents the service I personally performed and the decisions made by me, Angie Ceja ARNP. History of Present Illness Service Date and Time: 01/13/2024 1324 Previous diagnosis: Moderate, Obstructive Sleep Apnea-Hypopnea Syndrome AHI: 26.2 Reason for follow up: six month Equipment type: CPAP (RESMED Airsense 11, s/u ) Equipment obtained from: Other ([facility], getting supplies) Mask style: Nasal (over the nose) Backup mask available: Yes Last cushion change: 3 days [facility]: [facility] Type of Sleep Study: Polysomnography (COMPLETED 11/26/22) HPI additional information: ROSALINDA MCMAHAN was diagnosed to have moderate, AHI 26.2, obstructive sleep apnea- hypopnea syndrome and returned today for CPAP therapy six month follow-up. Sleep Study - Results Type of Sleep Study: Polysomnography (COMPLETED 11/26/22) Prior sleep studies: Yes [facility] CPAP Compliance Data - Data Reviewed with Patient Average duration of nightly device use: 6 HRS 3 MINS Compliance rate %: 67 (07/15/23-01/10/24; 151/180 days used) Current pressure setting (cmH2O): 12-15 Average residual AHI: 4.5 Central apnea: 1 Obstructive apnea: 1.4 Hypopnea: 1.5 Average large leak: 18.8 L/min Subjective Missed days of use due to: reports: family emergency, illness (sinus infection), other (3 days, ran out of distilled water) Patient concerns: reports: nasal congestion (from being sick), dry mouth, nose, throat (chin strap too stretched out, just got a new one). denies: aerophagia, mask discomfort, air blowing in eyes, mask leak noise, condensation in mask/hose , epistaxis Observed to snore while using device: No Current pressure setting perceived as: comfortable On therapy, patient: reports: sleeping better, awakening more refreshed, being more awake and alert during the day, more rested overall. denies: drowsiness while driving Initial [place] Sleepiness Scale score: 17 (11/11/22) Current [place] Sleepiness Scale score: 4 (01/13/24) Allergies and Home Medications Known drug allergies: Yes (as listed) Drug allergies reviewed: Yes Home medication list reviewed: Yes (as listed) Allergy and home medication list: Allergies propoxyphene HCl * [From Darvon] Adverse Reaction (Unknown, Verified 01/11/24 10:22) Nausea codeine Adverse Reaction (Verified 01/11/24 10:22) Diaphoresis oxycodone Adverse Reaction (Verified 01/11/24 10:22) Hallucinations Home Medications Medication Instructions Recorded Confirmed Last Taken Type Aspirin 325 mg PO 2100 12/28/12 01/13/24 11/10/16 History Prazosin [Minipress] 5 mg PO DAILY 12/28/12 01/13/24 11/14/16 History Sertraline [Zoloft] 100 mg PO DAILY 12/28/12 01/13/24 11/14/16 History Furosemide 20 mg PO DAILY 08/15/14 01/13/24 11/14/16 History Insulin Glargine,Hum.rec.anlog 50 units SQ 209910/01/15 01/13/24 11/14/16 History [Lantus] Insulin Aspart [NovoLOG] 20 unit SUBQ TIDWM 11/12/16 01/13/24 11/14/16 History Pantoprazole [Protonix] 40 mg PO BID 11/12/16 01/13/24 11/14/16 History Lipase/Protease/Amylase [Creon Dr See Rx Instructions .ROUTE .COMPLEX 11/12/22 01/13/24 Unknown History 12,000 Unit Capsule] Losartan [Cozaar] See Rx Instructions .ROUTE .COMPLEX 11/12/22 01/13/24 Unknown History amLODIPine [Norvasc] See Rx Instructions .ROUTE .COMPLEX 11/12/22 01/13/24 Unknown History Albuterol Sulf [Ventolin Hfa 2 - 3 puffs INH QID #1 each 11/29/23 01/13/24 Unknown Rx Inhaler] Benzonatate [Tessalon] 100 mg PO TID PRN #20 cap 11/29/23 01/13/24 Unknown Rx dexAMETHasone [Decadron] 4 mg PO DAILY #5 tablet 11/29/23 01/13/24 Unknown Rx Review of Systems Review of systems same as previous: Yes (NO CHANGE) Physical Exam Vital signs obtained and entered by: KILO Ware MA Blood Pressure: 179/78 (RIGHT ARM) Cuff size: long Heart Rate: 78 O2 Saturation: 96 Height: 5 ft 11 in (PER PT) Weight: 331 lb Body Mass Index: 46.1 BMI Classification: Morbidly Obese Impression and Plan 1. Obstructive Sleep Apnea-Hypopnea Syndrome, moderate, with fair treatment compliance and good apnea control. On CPAP therapy, the patient has better sleep quality and is more rested overall. He has significant improvement of his sleep apnea and is satisfied with current CPAP therapy. He has had some mouth dryness because his chinstrap became stretched out. He has a new one that he ordered and will try using it again. Patient's apnea severity and rationale for treatment to reduce apnea, improve sleep quality and reduce cardiovascular and cerebrovascular events was reviewed. I also reviewed the benefit of consistent device use of CPAP for hypertension, cardiac disease (CHF), diabetes, gastric reflux, depression/anxiety, mood disorder (PTSD). 2. Obesity, unspecified. Currently patients BMI is 46.1. Obesity increases the risk of apnea, CPAP pressure requirements and overall health risks especially cardiovascular and diabetes. Thus patient is advised to lose weight. * Continue auto CPAP pressure at 12-15 cmH2O * Notify me if snoring with mask or feeling that the pressure is too much or too little * Attempt to lose weight * Call this office if any problems using CPAP * Return for follow up in 12 months, or sooner if concerns arise Counseling Topics: Spare mask, Weight loss health impact Follow up with Sleep Care in: 1 year Visit Type: In Office Time Spent with Patient (minutes): 16 Provider Statement: I spent 100% of the Face to Face Visit with the patient with greater than 50% spent counseling the patient and coordination of care.
[2024-01-13 14:21] VITALS: BP 179/78; O2SAT 96
== END 2024-01-13 13:25 | disposition home or self-care (01) ==
LOC: SC 13:24
PROVIDERS: ATTEND Nurse Practitioner Family
DX: G47.33 Obstructive sleep apnea (adult) (pediatric) (principal); E66.01 Morbid (severe) obesity due to excess calories; Z68.42 Body mass index [BMI] 45.0-49.9, adult
CPT/HCPCS: 99212; G0463

== ENCOUNTER 2024-01-31 03:47 | Outpatient (CLI) | payer MEDICARE, OTHER | END 2024-01-31 23:59 | disposition critical access hospital (66) | LOC: EMS 03:47 | DX: R07.89 Other chest pain (principal) | CPT/HCPCS: A0425; A0429 ==

== ENCOUNTER 2024-01-31 04:04 | Emergency (ER) | payer MEDICARE, OTHER ==
--- NOTE | 2024-01-31 04:35 | ED Physician Documentation ---
PD HPI CHEST PAIN - Stated complaint Stated Complaint: CHEST PX - Chief complaint Chief Complaint: Cardiac - History obtained from History obtained from: Patient, EMS - History of Present Illness Timing - onset: Enter time (299), Today Timing - onset during: Sleep Timing - duration: Hours Timing - details: Abrupt onset, Still present Quality: Sharp, Pain Location: Substernal, Left chest Radiation: Neck, Left upper extremity Improved by: Nothing Worsened by: Inspiration Associated symptoms: Shortness of air, Diaphoresis, Nausea, Feeling faint / dizzy, Cough Similar symptoms before: Diagnosis (bronchitis, hypertensive heart disease with low vascular volume) Recently seen: Emergency Dept - Additional information Additional information: Jake Rubi is a 78-year-old male with a prior history of congestive heart failure who has had a negative chemical stress test previously. He is presenting today with chest pain in the left chest radiating up to the neck and left arm. He indicates that he began having dry heaves this morning when he awoke. He also indicates that he has had a cough for the past month and today he has developed fever as well. He has developed sweats associated with his symptoms today and feels lightheaded and dizzy. He does take furosemide and he has seen a electric motor control assembler a number of years ago. 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 He is diabetic and on insulin states that his sugars have been in good range about 140. He has been getting up once at night to go to the bathroom. Review of Systems Constitutional: reports: Fever, Chills, Sweats Eyes: denies: Decreased vision Ears: reports: Loss of hearing. denies: Ear pain Nose: reports: Rhinorrhea / runny nose, Congestion Throat: denies: Sore throat Cardiac: reports: Chest pain / pressure. denies: Palpitations, Pedal edema, Calf pain Respiratory: reports: Dyspnea, Cough GI: reports: Nausea, Vomiting. denies: Abdominal Pain : denies: Dysuria, Frequency Skin: denies: Rash Musculoskeletal: denies: Neck pain, Back pain, Extremity pain Neurologic: denies: Generalized weakness, Focal weakness, Numbness PD PAST MEDICAL HISTORY - Past Medical History Cardiovascular: Congestive heart failure, Hypertension, High cholesterol Respiratory: Sleep apnea, CPAP use Neuro: Other Endocrine/Autoimmune: Type 2 diabetes GI: Pancreatitis : None HEENT: Chronic vision loss Psych: Post traumatic stress disorder Musculoskeletal: Osteoarthritis - Past Surgical History Past Surgical History: No General: Cholecystectomy Ortho: Knee replacement - Present Medications Home Medications: Ambulatory Orders Medication Instructions Recorded Confirmed Aspirin 325 mg PO 2100 12/28/12 01/13/24 Prazosin [Minipress] 5 mg PO DAILY 12/28/12 01/13/24 Sertraline [Zoloft] 100 mg PO DAILY 12/28/12 01/13/24 Furosemide 20 mg PO DAILY 08/15/14 01/13/24 Insulin Glargine,Hum.rec.anlog 50 units SQ 2100 10/01/15 01/13/24 [Lantus] Insulin Aspart [NovoLOG] 20 unit SUBQ TIDWM 11/12/16 01/13/24 Pantoprazole [Protonix] 40 mg PO BID 11/12/16 01/13/24 Lipase/Protease/Amylase [Creon Dr See Rx Instructions .ROUTE .COMPLEX 11/12/22 01/13/24 12,000 Unit Capsule] Losartan [Cozaar] See Rx Instructions .ROUTE .COMPLEX 11/12/22 01/13/24 amLODIPine [Norvasc] See Rx Instructions .ROUTE .COMPLEX 11/12/22 01/13/24 Albuterol Sulf [Ventolin Hfa 2 - 3 puffs INH QID #1 each 11/29/23 01/13/24 Inhaler] Benzonatate [Tessalon] 100 mg PO TID PRN #20 cap 11/29/23 01/13/24 dexAMETHasone [Decadron] 4 mg PO DAILY #5 tablet 11/29/23 01/13/24 Amox/Clav 875/125 [Augmentin] 1 each PO Q12H #20 tablet 01/31/24 Azithromycin [Zithromax] 250 mg PO DAILY #6 tablet 01/31/24 Benzonatate [Tessalon] 100 - 200 mg PO Q6HR PRN #30 cap 01/31/24 - Allergies Allergies/Adverse Reactions: Allergies Allergy/AdvReac Type Severity Reaction Status Date / Time propoxyphene HCl * AdvReac Unknown Nausea Verified 01/31/24 04:11 [From Darvon] codeine AdvReac Diaphoresis Verified 01/31/24 04:11 oxycodone AdvReac Hallucinati Verified 01/31/24 04:11 ons - Social History Does the pt smoke?: Yes Smoking Status: Current every day smoker Does the pt drink ETOH?: No Does the pt have substance abuse?: No - Immunizations Immunizations are current?: Yes - POLST Patient has POLST: No PD ED PE NORMAL - Vitals Vital signs reviewed: Yes (febrile and hypertensive ) - General General: Alert and oriented X 3, No acute distress, Well developed/nourished, Other (periodically a coughing fit will occur) - HEENT HEENT: Atraumatic, PERRL, EOMI, Other (cerumen is present bilaterally) - Neck Neck: Supple, no meningeal sign, No bony TTP - Cardiac Cardiac: RRR, Other (2/6 holosystolic murmer at LSB) - Respiratory Respiratory: No respiratory distress, Clear bilaterally - Abdomen Abdomen: Soft, Non tender, Other (obese with multiple bruises from injections well healed RUQ scar consistent with open ambar. ) - Back Back: No CVA TTP, No spinal TTP - Derm Derm: Normal color, Warm and dry, No rash - Extremities Extremities: No deformity, No edema - Neuro Neuro: Alert and oriented X 3, medical billing supervisor 2-12 intact, No motor deficit, No sensory deficit, Normal speech Eye Opening: Spontaneous Motor: Obeys Commands Verbal: Oriented GCS Score: 15 - Psych Psych: Normal mood, Normal affect Results - Vitals Vitals: Vital Signs - 24 hr 01/31/24 01/31/24 01/31/24 04:11 04:32 06:13 Temperature 38.3 C H Heart Rate 88 76 70 Respiratory 20 22 20 Rate Blood Pressure 186/67 H 117/43 L 102/90 H O2 Saturation 99 98 99 01/31/24 06:53 Temperature Heart Rate 70 Respiratory 19 Rate Blood Pressure 126/54 L O2 Saturation 98 Oxygen O2 Source Room air - EKG (time done) 0406 EKG releavant findings:: EKG personally interpreted by author of this note. Relevant findings are: Rate: Rate (enter#) (84) Compare to prior EKG: Changed from prior EKG (SPT 11-29-23 the rate is faster, the MS and QT intervals are now normal.) Computer interpretation: Disagree with computer (I do not see ST elevation in lateral leads. ) - Labs Labs: Laboratory Tests 01/31/24 01/31/24 01/31/24 04:30 04:36 04:36 WBC 2.6 L RBC 3.83 L Hgb 10.5 L Hct 31.9 L MCV 83.3 MCH 27.4 MCHC 32.9 RDW 14.1 Plt Count 100 L MPV 9.1 Neut # (Auto) 1.9 Lymph # (Auto) 0.2 L Caswell # (Auto) 0.3 Eos # (Auto) 0.0 Baso # (Auto) 0.0 Absolute Nucleated RBC 0.00 Band Neuts % (Manual) Not Reportable Abnorm Lymph % (Manual) Not Reportable Nucleated RBC % 0.0 Neutrophils # (Manual) Not Reportable Lymphocytes # (Manual) Not Reportable Monocytes # (Manual) Not Reportable Eosinophils # (Manual) Not Reportable Basophils # (Manual) Not Reportable Differential Comment MANUAL=AUTO DIFF Platelet Estimate DECREASED (<130,000) RBC Morph Micro Appear NORMAL APPEARANCE Sodium 138 Potassium 3.8 Chloride 107 Carbon Dioxide 26 Anion Gap 5.0 L BUN 17 Creatinine 1.3 Estimated GFR (MDRD) 54 L Glucose 137 H Lactic Acid Calcium 9.0 Total Bilirubin 0.6 AST 14 ALT 10 Alkaline Phosphatase 55 Troponin I High Sens B-Natriuretic Peptide Total Protein 6.5 Albumin 4.0 Globulin 2.5 Albumin/Globulin Ratio 1.6 Lipase 23 Nasal Adenovirus (PCR) NOT DETECTED Nasal B. parapertussis DNA (PCR) NOT DETECTED Nasal Coronavir 229E PCR NOT DETECTED Nasal Coronavir HKU1 PCR NOT DETECTED Nasal Coronavir NL63 PCR NOT DETECTED Nasal Coronavir OC43 PCR NOT DETECTED Nasal Enterovir/Rhinovir PCR NOT DETECTED Nasal Influenza B PCR NOT DETECTED Nasal Influenza A PCR NOT DETECTED Nasal Parainfluen 1 PCR NOT DETECTED Nasal Parainfluen 2 PCR NOT DETECTED Nasal Parainfluen 3 PCR NOT DETECTED Nasal Parainfluen 4 PCR NOT DETECTED Nasal RSV (PCR) NOT DETECTED Nasal B.pertussis DNA PCR NOT DETECTED Nasal C.pneumoniae (PCR) NOT DETECTED Mamadou Human Metapneumo PCR NOT DETECTED Nasal M.pneumoniae (PCR) NOT DETECTED Nasal SARS-CoV-2 (PCR) DETECTED A 01/31/24 01/31/24 01/31/24 04:36 04:36 04:36 WBC RBC Hgb Hct MCV MCH MCHC RDW Plt Count MPV Neut # (Auto) Lymph # (Auto) Caswell # (Auto) Eos # (Auto) Baso # (Auto) Absolute Nucleated RBC Band Neuts % (Manual) Abnorm Lymph % (Manual) Nucleated RBC % Neutrophils # (Manual) Lymphocytes # (Manual) Monocytes # (Manual) Eosinophils # (Manual) Basophils # (Manual) Differential Comment Platelet Estimate RBC Morph Micro Appear Sodium Potassium Chloride Carbon Dioxide Anion Gap BUN Creatinine Estimated GFR (MDRD) Glucose Lactic Acid 1.0 Calcium Total Bilirubin AST ALT Alkaline Phosphatase Troponin I High Sens 8.9 B-Natriuretic Peptide 145 H Total Protein Albumin Globulin Albumin/Globulin Ratio Lipase Nasal Adenovirus (PCR) Nasal B. parapertussis DNA (PCR) Nasal Coronavir 229E PCR Nasal Coronavir HKU1 PCR Nasal Coronavir NL63 PCR Nasal Coronavir OC43 PCR Nasal Enterovir/Rhinovir PCR Nasal Influenza B PCR Nasal Influenza A PCR Nasal Parainfluen 1 PCR Nasal Parainfluen 2 PCR Nasal Parainfluen 3 PCR Nasal Parainfluen 4 PCR Nasal RSV (PCR) Nasal B.pertussis DNA PCR Nasal C.pneumoniae (PCR) Mamadou Human Metapneumo PCR Nasal M.pneumoniae (PCR) Nasal SARS-CoV-2 (PCR) 01/31/24 06:41 WBC RBC Hgb Hct MCV MCH MCHC RDW Plt Count MPV Neut # (Auto) Lymph # (Auto) Caswell # (Auto) Eos # (Auto) Baso # (Auto) Absolute Nucleated RBC Band Neuts % (Manual) Abnorm Lymph % (Manual) Nucleated RBC % Neutrophils # (Manual) Lymphocytes # (Manual) Monocytes # (Manual) Eosinophils # (Manual) Basophils # (Manual) Differential Comment Platelet Estimate RBC Morph Micro Appear Sodium Potassium Chloride Carbon Dioxide Anion Gap BUN Creatinine Estimated GFR (MDRD) Glucose Lactic Acid Calcium Total Bilirubin AST ALT Alkaline Phosphatase Troponin I High Sens 10.5 B-Natriuretic Peptide Total Protein Albumin Globulin Albumin/Globulin Ratio Lipase Nasal Adenovirus (PCR) Nasal B. parapertussis DNA (PCR) Nasal Coronavir 229E PCR Nasal Coronavir HKU1 PCR Nasal Coronavir NL63 PCR Nasal Coronavir OC43 PCR Nasal Enterovir/Rhinovir PCR Nasal Influenza B PCR Nasal Influenza A PCR Nasal Parainfluen 1 PCR Nasal Parainfluen 2 PCR Nasal Parainfluen 3 PCR Nasal Parainfluen 4 PCR Nasal RSV (PCR) Nasal B.pertussis DNA PCR Nasal C.pneumoniae (PCR) Mamadou Human Metapneumo PCR Nasal M.pneumoniae (PCR) Nasal SARS-CoV-2 (PCR) - Rads (name of study) chest 1 view Relevant Findings:: Prelim report reviewed (Impression: Cardiomegaly, no CHF.), EMP independent interpretation of test (On my read I do see cardiomegaly and there is infiltrate in the right base obscuring the right heart border and a portion of the right hemidiaphragm. The lung markings are coarse potentially consistent with atypical pneumonia.) Procedures - IVC sono (time) 0428 Bedside IVC sono: IVC measures (cm) (0.92), IVC collapsed c insp (cm) (complete), Dehydration (est 2 liter deficit) PD Medical Decision Making - ED course Complexity details: reviewed old records, reviewed results, re-evaluated patient, considered differential, d/w patient Reviewed Lab Results: We reviewed a complete blood count showing a white blood cell count depressed at 2.6 hemoglobin depressed at 10.5 and a hematocrit depressed at 31.69 these numbers are similar to what the patient has had in his most recent visit 2 months ago. Platelets were low at 100,000 again similar to what the patient had 2 months ago. Chemistries were unremarkable with normal electrolytes normal BUN and creatinine normal liver function glucose mildly elevated 137 high- sensitivity troponin normal at 8.9 and a BNP minimally elevated at 145. The patient has had prior elevations of BNP up to 477. Lactate is normal at 1. Nasal smear is positive for COVID. I interpret these laboratory results to indicate that the patient has COVID. The possibility of acute coronary syndrome as a cause of the patient's pain appears unlikely. ED course: 78-year-old Jake Rubi presented to the emergency department with sharp intermittent left-sided chest pain with radiation into his neck and left upper extremity. He was ultimately found to have COVID. We did do an electrocardiogram and troponin which were both unremarkable a chest x-ray showed cardiomegaly with increased lung markings especially in comparison to his prior previous lung x-rays. I had previously interrogated his IVC with POCUS and found a collapsing vessel that actually collapsed completely consistent with some degree of dehydration. These findings along with a BNP of 175 do not support a diagnosis of failure. The patient is on Lasix. He had enough fullness in the right base of his chest x-ray for me to feel compelled to treat pneumonia under the circumstances. He was administered Rocephin azithromycin and dexamethasone. He was also administered Toradol for the pain. He had improvement in his pain and improvement in his airway movement with time. I suspect the pain that he had in his chest is related to reactive airway disease. He does have an inhaler at home. I refrained from placing the patient on a course of prednisone but I did give him a dose of dexamethasone and instructed him to be mindful of his blood sugar and give additional insulin as indicated. Departure - Departure Disposition: Home, Self Care Clinical Impression: Viral URI with cough, Chest pain, COVID Pneumonia Qualifiers: Pneumonia type: due to unspecified organism Laterality: right Lung location: lower lobe of lung Qualified Code(s): J18.9 - Pneumonia, unspecified organism Condition: Stable Instructions: ED Chest Pain Costochondritis, ED Pneumonia Adult, Flu and Cold: Nutrition, Prevention and Treatment Tips Follow-Up: Sav Lehman MD [Provider Admit Priv/Credential] - Prescriptions: Benzonatate [Tessalon] 100 - 200 mg PO Q6HR PRN #30 cap PRN Reason: Cough Amox/Clav 875/125 [Augmentin] 1 each PO Q12H #20 tablet Azithromycin [Zithromax] 250 mg PO DAILY #6 tablet Comments: Jake, today it looks like you have COVID and there does appear to be infiltrate on the chest x-ray. This is consistent with the possibility of a pneumonia and treatment of this is indicated. I have E scribed to antibiotics to the [facility] pharmacy as well as some cough suppressant. Use your inhaler as needed for any shortness of breath. The pain you are having in your chest is likely related to tugging for a breath. Forms: PCP List
[2024-01-31 04:44] LABS: BASOPHILS % (AUTO) 1.2 %; EOSINOPHILS % (AUTO) 1.6 %; HCT - HEMATOCRIT 31.9 % (42.0-52.0); HGB - HEMOGLOBIN 10.5 g/dL (14.0-18.0); LYMPHOCYTES # (AUTO) 0.2 10^3/uL (1.5-3.5); LYMPHOCYTES % (AUTO) 8.1 %; MEAN CORPUSCULAR HEMOGLOBIN 27.4 pg (27.0-31.0); MEAN CORPUSCULAR HGB CONC 32.9 g/dL (32.0-36.0); MEAN CORPUSCULAR VOLUME 83.3 fL (80.0-94.0); MEAN PLATELET VOLUME 9.1 fL (7.4-11.4); MONOCYTES # (AUTO) 0.3 10^3/uL (0.0-1.0); MONOCYTES % (AUTO) 13.2 %; NEUTROPHILS # (AUTO) 1.9 10^3/uL (1.5-6.6); NEUTROPHILS % (AUTO) 75.1 %; PLT - PLATELET COUNT 100 10^3/uL (130-450); RED BLOOD COUNT 3.83 10^6/uL (4.70-6.10); RED CELL DISTRIBUTION WIDTH 14.1 % (12.0-15.0); WHITE BLOOD COUNT 2.6 x10^3/uL (4.8-10.8)
[2024-01-31] MEDS: SODIUM CHLORIDE 0.9% 1,000 ML IV STA (04:45)
[2024-01-31] MEDS: SODIUM CHLORIDE 0.9% 500 ML IV STA (04:51)
[2024-01-31 04:58] LABS: ALBUMIN/GLOBULIN RATIO 1.6 (1.0-2.2); BILIRUBIN,TOTAL 0.6 mg/dL (0.2-1.0); CREATININE 1.3 mg/dL (0.6-1.3); POTASSIUM 3.8 mmol/L (3.5-4.5); TOTAL PROTEIN 6.5 g/dL (6.4-8.9)
[2024-01-31] MEDS ORDERED: cefTRIAXone 1 GM VIAL ONE (05:23)
[2024-01-31] MEDS: cefTRIAXone 1 GM in SODIUM CHLORIDE 0.9% MINIBAG 100 ML IV STA (05:29)
[2024-01-31] MEDS: KETOROLAC 30 MG/ML VIAL IVP STA (05:29)
[2024-01-31 05:44] LABS: DIFFERENTIAL COMMENT MANUAL=AUTO DIFF; PLATELET ESTIMATE, MANUAL DECREASED (<130,000) (NORMAL); RBC MORPHOLOGY (MULTIPLE) NORMAL APPEARANCE (NORMAL)
[2024-01-31] MEDS: AZITHROMYCIN INJ 500 MG in SODIUM CHLORIDE 0.9% 250 ML IV STA (05:45)
[2024-01-31 05:46] LABS: CORONAVIRUS 229E-RESP PCR NOT DETECTED; CORONAVIRUS HKU1-RESP PCR NOT DETECTED; CORONAVIRUS NL63-RESP PCR NOT DETECTED; CORONAVIRUS OC43-RESP PCR NOT DETECTED
[2024-01-31 05:47] LABS: B. PARAPERTUSSIS- RESP PCR PAN NOT DETECTED; B. PERTUSSIS- RESP PCR PANEL NOT DETECTED; C. PNEUMONIAE- RESP PCR PANEL NOT DETECTED; HUMAN METAPNEUMOVIRUS NOT DETECTED; INFLUENZA A- RESP PCR PANEL NOT DETECTED; INFLUENZA B - RESP PCR PANEL NOT DETECTED; M. PNEUMONIAE- RESP PCR PANEL NOT DETECTED; PARAINFLUENZA VIRUS 1 NOT DETECTED; PARAINFLUENZA VIRUS 2 NOT DETECTED; PARAINFLUENZA VIRUS 3 NOT DETECTED; PARAINFLUENZA VIRUS 4 NOT DETECTED; RHINOVIRUS/ENTEROVIRUS NOT DETECTED; RSV- RESP PCR PANEL NOT DETECTED; SARS-CoV-2 -RESP PCR PANEL DETECTED
[2024-01-31] MEDS: CHERRY SYRUP 10 ML UDC PO ONE (06:24)
[2024-01-31] MEDS: DEXAMETHASONE 10 MG/ML VIAL PO STA (06:24)
[2024-01-31 06:55] VITALS: BP 126/54; O2SAT 98
--- NOTE | 2024-01-31 07:16 | ED Physician Documentation ---
ED Addendum - Addendum Addendum: 01/31/24 07:15 Patient cared for entirely by Dr. Acosta, clicked on chart in error.
--- NOTE | 2024-01-31 09:49 | XRAY Report ---
PROCEDURE: Chest 1V INDICATIONS: chest pain TECHNIQUE: One view of the chest was acquired. COMPARISON: 11/29/2023. FINDINGS: Surgical changes and devices: None. Lungs and pleura: No pleural effusions or pneumothorax. Lungs are clear. Mediastinum: Mediastinal contours appear normal. Heart mildly enlarged. Bones and chest wall: No suspicious bony lesions. Overlying soft tissues appear unremarkable. IMPRESSION: No acute cardiopulmonary process. Reviewed by: Franca Abrams MD, PhD on 01/31/2024 9:47 AM PDT Approved by: Franca Abrams MD, PhD on 01/31/2024 9:47 AM PDT Station ID: [id number]
== END 2024-01-31 07:28 | disposition home or self-care (01) ==
LOC: EDUNIT# → ED 04:04
DX: J18.9 Pneumonia, unspecified organism (principal); U07.1 COVID-19; J06.9 Acute upper respiratory infection, unspecified; R07.9 Chest pain, unspecified; H61.23 Impacted cerumen, bilateral; I11.0 Hypertensive heart disease with heart failure; I50.9 Heart failure, unspecified; E78.00 Pure hypercholesterolemia, unspecified; E11.9 Type 2 diabetes mellitus without complications; F17.200 Nicotine dependence, unspecified, uncomplicated; Z79.82 Long term (current) use of aspirin; Z79.4 Long term (current) use of insulin; Z79.899 Other long term (current) drug therapy
CPT/HCPCS: 36415; 71045; 80053; 83605; 83690; 83880; 84484; 85025; 87633; 93005; 99284; A9270

== ENCOUNTER 2024-02-09 10:46 | Outpatient (CLI) | payer MEDICARE, OTHER ==
--- NOTE | 2024-02-09 14:42 | XRAY Report ---
PROCEDURE: Chest 2V INDICATIONS: COUGH, UNSPECIFIED TECHNIQUE: 2 views of the chest were acquired. COMPARISON: 01/31/2024. FINDINGS: Surgical changes and devices: None. Lungs and pleura: No pleural effusions or pneumothorax. Stable likely pleural scarring involving the right lower lung zone and left midlung zone peripherally. No new focal pulmonary consolidations.. Mediastinum: Mediastinal contours appear normal. Heart size is normal. Bones and chest wall: No suspicious bony lesions. Overlying soft tissues appear unremarkable. IMPRESSION: Stable chronic pulmonary scarring. No new focal pulmonary consolidations. Reviewed by: Henry Duvla MD on 02/09/2024 2:41 PM PDT Approved by: Henry Duval MD on 02/09/2024 2:41 PM PDT Station ID: [id number]
== END 2024-02-09 10:47 | disposition home or self-care (01) ==
LOC: DI.N 10:46
PROVIDERS: ATTEND Student in an Organized Health Care Education/Training Program
DX: R05.9 Cough, unspecified (principal); J98.4 Other disorders of lung

== ENCOUNTER 2024-03-17 14:20 | Emergency (ER) | payer MEDICARE, OTHER ==
[2024-03-17 15:04] LABS: BASOPHILS % (AUTO) 0.4 %; EOSINOPHILS # (AUTO) 0.1 10^3/uL (0.0-0.7); EOSINOPHILS % (AUTO) 1.5 %; HGB - HEMOGLOBIN 9.9 g/dL (14.0-18.0); LYMPHOCYTES # (AUTO) 0.8 10^3/uL (1.5-3.5); LYMPHOCYTES % (AUTO) 15.8 %; MEAN CORPUSCULAR HEMOGLOBIN 26.3 pg (27.0-31.0); MEAN CORPUSCULAR HGB CONC 31.9 g/dL (32.0-36.0); MEAN CORPUSCULAR VOLUME 82.4 fL (80.0-94.0); MEAN PLATELET VOLUME 9.3 fL (7.4-11.4); MONOCYTES # (AUTO) 0.4 10^3/uL (0.0-1.0); MONOCYTES % (AUTO) 7.3 %; NEUTROPHILS # (AUTO) 3.6 10^3/uL (1.5-6.6); NEUTROPHILS % (AUTO) 74.6 %; PLT - PLATELET COUNT 144 10^3/uL (130-450); RED BLOOD COUNT 3.76 10^6/uL (4.70-6.10); RED CELL DISTRIBUTION WIDTH 15.5 % (12.0-15.0); WHITE BLOOD COUNT 4.8 x10^3/uL (4.8-10.8)
--- NOTE | 2024-03-17 15:20 | ED Physician Documentation ---
PD HPI ABD PAIN - Stated complaint Stated Complaint: ABD PX, DIZZY, COUGH - Chief complaint Chief Complaint: Cardiac - Additional information Additional information: 78-year-old male with type 2 diabetes, insulin-dependent, cholecystectomy, b ilateral knee replacement, cataract surgery, high cholesterol, CHF, obesity presents emergency department for multitude of complaints. Patient has had diarrhea now for about 12 weeks he is also been having about 6 weeks of shortness of breath. He was recently diagnosed with COVID-pneumonia about a month ago overall he was feeling better but last night he woke with sudden shortness of breath and midsternal chest pain. This feels similar to last time he had pneumonia he attempted to do albuterol nebulizer at home with little to no relief. PD PAST MEDICAL HISTORY - Past Medical History Past Medical History: Yes Cardiovascular: Congestive heart failure, Hypertension, High cholesterol Respiratory: Sleep apnea, CPAP use Neuro: Other Endocrine/Autoimmune: Type 2 diabetes GI: Pancreatitis : None HEENT: Chronic vision loss Psych: Post traumatic stress disorder Musculoskeletal: Osteoarthritis - Past Surgical History Past Surgical History: No General: Cholecystectomy Ortho: Knee replacement - Present Medications Home Medications: Ambulatory Orders Medication Instructions Recorded Confirmed Aspirin 325 mg PO 2100 12/28/12 01/13/24 Prazosin [Minipress] 5 mg PO DAILY 12/28/12 01/13/24 Sertraline [Zoloft] 100 mg PO DAILY 12/28/12 01/13/24 Furosemide 20 mg PO DAILY 08/15/14 01/13/24 Insulin Glargine,Hum.rec.anlog 50 units SQ 2100 10/01/15 01/13/24 [Lantus] Insulin Aspart [NovoLOG] 20 unit SUBQ TIDWM 11/12/16 01/13/24 Pantoprazole [Protonix] 40 mg PO BID 11/12/16 01/13/24 Lipase/Protease/Amylase [Creon Dr See Rx Instructions .ROUTE .COMPLEX 11/12/22 01/13/24 12,000 Unit Capsule] Losartan [Cozaar] See Rx Instructions .ROUTE .COMPLEX 11/12/22 01/13/24 amLODIPine [Norvasc] See Rx Instructions .ROUTE .COMPLEX 11/12/22 01/13/24 Albuterol Sulf [Ventolin Hfa 2 - 3 puffs INH QID #1 each 11/29/23 01/13/24 Inhaler] Benzonatate [Tessalon] 100 mg PO TID PRN #20 cap 11/29/23 01/13/24 dexAMETHasone [Decadron] 4 mg PO DAILY #5 tablet 11/29/23 01/13/24 Amox/Clav 875/125 [Augmentin] 1 each PO Q12H #20 tablet 01/31/24 Azithromycin [Zithromax] 250 mg PO DAILY #6 tablet 01/31/24 Benzonatate [Tessalon] 100 - 200 mg PO Q6HR PRN #30 cap 01/31/24 Doxycycline [Vibramycin] 100 mg PO BID 7 Days #14 tablet 03/17/24 - Allergies Allergies/Adverse Reactions: Allergies Allergy/AdvReac Type Severity Reaction Status Date / Time propoxyphene HCl * AdvReac Unknown Nausea Verified 01/31/24 04:11 [From Darvon] codeine AdvReac Diaphoresis Verified 01/31/24 04:11 oxycodone AdvReac Hallucinati Verified 01/31/24 04:11 ons - Social History Does the pt smoke?: Yes Smoking Status: Current every day smoker Does the pt drink ETOH?: No Does the pt have substance abuse?: No - Immunizations Immunizations are current?: Yes - POLST Patient has POLST: No PD ED PE NORMAL - Vitals Vital signs reviewed: Yes - General General: Alert and oriented X 3, No acute distress, Well developed/nourished - HEENT HEENT: Atraumatic, PERRL - Cardiac Cardiac: RRR, Other (systolic murmur) - Respiratory Respiratory: No respiratory distress, Clear bilaterally, Other (bilateral diminshed breath sounds) - Abdomen Abdomen: Normal bowel sounds, Soft, Non tender, Non distended, No organomegaly - Back Back: No CVA TTP - Derm Derm: Normal color, Warm and dry, No rash - Extremities Extremities: No deformity, No edema, No calf tenderness / cord - Neuro Neuro: Alert and oriented X 3, 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, No motor deficit, No sensory deficit, Normal speech - Psych Psych: Normal mood, Normal affect Results - Vitals Vitals: Vital Signs - 24 hr 03/17/24 03/17/24 03/17/24 14:35 15:23 15:56 Temperature 36.8 C Heart Rate 71 67 67 Respiratory 16 16 14 Rate Blood Pressure 167/73 H 137/57 H 130/58 L O2 Saturation 97 97 100 03/17/24 03/17/24 03/17/24 16:00 16:30 17:00 Temperature Heart Rate 65 70 69 Respiratory 16 16 24 Rate Blood Pressure 136/59 H 160/60 H 150/60 H O2 Saturation 98 98 97 03/17/24 03/17/24 03/17/24 17:56 18:00 18:30 Temperature 36.8 C Heart Rate 69 73 67 Respiratory 13 18 16 Rate Blood Pressure 147/68 H 155/72 H 142/60 H O2 Saturation 98 99 98 Oxygen O2 Source Room air - EKG (time done) 1447 EKG releavant findings:: EKG personally interpreted by author of this note. Relevant findings are: Rate: Rate (enter#) (73) Rhythm: NSR [place]: Normal Intervals: Normal MA QRS: Normal Ischemia: Other (minimal ST depression in lateral leads) - Labs Labs: Laboratory Tests 03/17/24 03/17/24 03/17/24 14:56 14:56 18:22 WBC 4.8 RBC 3.76 L Hgb 9.9 L Hct 31.0 L MCV 82.4 MCH 26.3 L MCHC 31.9 L RDW 15.5 H Plt Count 144 MPV 9.3 Neut # (Auto) 3.6 Lymph # (Auto) 0.8 L Sharp # (Auto) 0.4 Eos # (Auto) 0.1 Baso # (Auto) 0.0 Absolute Nucleated RBC 0.00 Nucleated RBC % 0.0 Sodium 143 Potassium 3.7 Chloride 111 Carbon Dioxide 24 Anion Gap 8.0 BUN 25 H Creatinine 1.4 H Estimated GFR (MDRD) 49 L Glucose 65 L Calcium 9.1 Total Bilirubin 0.7 AST 12 ALT 8 L Alkaline Phosphatase 55 Troponin I High Sens 8.6 Total Protein 6.7 Albumin 3.9 Globulin 2.8 Albumin/Globulin Ratio 1.4 Lipase 14 Nasal Adenovirus (PCR) NOT DETECTED Nasal B. parapertussis DNA (PCR) NOT DETECTED Nasal Coronavir 229E PCR NOT DETECTED Nasal Coronavir HKU1 PCR NOT DETECTED Nasal Coronavir NL63 PCR NOT DETECTED Nasal Coronavir OC43 PCR NOT DETECTED Nasal Enterovir/Rhinovir PCR NOT DETECTED Nasal Influenza B PCR NOT DETECTED Nasal Influenza A PCR NOT DETECTED Nasal Parainfluen 1 PCR NOT DETECTED Nasal Parainfluen 2 PCR NOT DETECTED Nasal Parainfluen 3 PCR NOT DETECTED Nasal Parainfluen 4 PCR NOT DETECTED Nasal RSV (PCR) NOT DETECTED Nasal B.pertussis DNA PCR NOT DETECTED Nasal C.pneumoniae (PCR) NOT DETECTED Mamadou Human Metapneumo PCR NOT DETECTED Nasal M.pneumoniae (PCR) NOT DETECTED Nasal SARS-CoV-2 (PCR) NOT DETECTED - Rads (name of study) 1 view chest x-ray Relevant Findings:: Final report received, EMP independent interpretation of test, Other (Prominent interstitial markings may reflect scarring, pulmonary edema, atypical infection) Angio chest CT with and without Relevant Findings:: Final report received, EMP independent interpretation of test, Other (Known pulmonary emboli, stable areas of scarring with rounded atelectasis, small pleural effusions, coronary artery disease) PD Medical Decision Making - ED course ED course: 78-year-old male presents emergency department for generalized unwell feeling and malaise. Labs are complete for further evaluation mild anemia hemoglobin 9.9 no leukocytosis no leukopenia BUN slightly elevated 25 GFR 49 respiratory panel is negative. Chest CTA was complete for further evaluation rule out the possibility of possible PE as he was experiencing some chest pain with tachycardia and he did not have a pulmonary embolism. He has stable areas of scarring with rounded atelectasis within the lingula small pleural effusions and probable hepatic cyst. Chest x-ray shows possible atypical infection and given the fact that patient feels very similar to how he felt last time with pneumonia we went ahead and started him on doxycycline. Although patient remained afebrile while here in the emergency department he does report that at home he has been having fevers so out of an abundance of caution this is why he would not answer him when he backs. He was given very strict return precautions and told to follow-up with his primary care provider this week for further evalua tion about today's ER visit. Departure - Departure Disposition: 01 Home, Self Care Clinical Impression: Atypical pneumonia, Bronchitis Instructions: ED Chest Pain Atypical Unkn Cause Prescriptions: Doxycycline [Vibramycin] 100 mg PO BID 7 Days #14 tablet Comments: Thank you for trusting us with your care. We have completed a CT chest angio as well as labs and a chest x-ray and there was some mild subtle findings for possible atypical lung infection. 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 Please follow-up with your primary care provider as soon as possible for further evaluation in regards to today's emergency department visit and please come back to the ER if you are having any worsening shortness of breath chest pain, nausea vomiting or other concerning emergent symptoms. Forms: PCP List Discharge Date/Time: 03/17/24 18:39
[2024-03-17 15:23] LABS: ALBUMIN 3.9 g/dL (3.2-5.5); ALBUMIN/GLOBULIN RATIO 1.4 (1.0-2.2); BILIRUBIN,TOTAL 0.7 mg/dL (0.2-1.0); CALCIUM 9.1 mg/dL (8.5-10.3); CREATININE 1.4 mg/dL (0.6-1.3); POTASSIUM 3.7 mmol/L (3.5-4.5); TOTAL PROTEIN 6.7 g/dL (6.4-8.9)
[2024-03-17 15:24] LABS: TROPONIN I HIGH SENSITIVITY 8.6 ng/L (2.3-19.7)
[2024-03-17] MEDS ORDERED: iohexoL-300 100 ML VIAL ONE ×2 (15:54→16:11)
[2024-03-17] MEDS: SODIUM CHLORIDE 0.9% 1,000 ML IV ONE (16:02)
--- NOTE | 2024-03-17 16:23 | XRAY Report ---
PROCEDURE: Chest 1V INDICATIONS: Chest pain TECHNIQUE: One view of the chest was acquired. COMPARISON: February 10, 2024 FINDINGS: Surgical changes and devices: None. Lungs and pleura: Low inspiratory effort with low lung volumes. Prominent interstitial markings with cephalization of flow and prominent vasculature. Mediastinum: Mediastinal contours appear normal. Heart size is normal. Bones and chest wall: No suspicious bony lesions. Overlying soft tissues appear unremarkable. IMPRESSION: Prominent interstitial markings may reflect scarring, pulmonary edema, or atypical infection. Reviewed by: Jaswinder Martines MD on 03/17/2024 3:22 PM CJ Approved by: Jaswinder Martines MD on 03/17/2024 3:22 PM CJ Station ID: [id number]
--- NOTE | 2024-03-17 16:42 | CT Report ---
PROCEDURE: Angio Chest INDICATIONS: SOA, r/o PE CONTRAST: omni, 80 TECHNIQUE: After the administration of intravenous contrast, 2 mm axial images were acquired from the pulmonary apices to the posterior costophrenic angles during the arterial phase. In addition, 1 mm lung kernel and 5 mm soft tissue kernel reconstructions were performed. 3-dimensional coronal oblique maximum int ensity projection (MIP) reformats, 8 mm axial MIP, and 5 mm coronal and sagittal MPR reformats were t hen performed through the thorax. For radiation dose reduction, the following was used: automated exp osure control, adjustment of mA and/or kV according to patient size. COMPARISON: Chest radiograph February 09, 2024 FINDINGS: Image quality: Excellent. Large vessels: No filling defects within the opacified pulmonary arteries, accounting for motion and contrast timing. No evidence of acute aortic syndrome or aortic aneurysm. Lungs and pleura: Scarlike consolidations within the right middle lobe and lingula with subpleural no dule within the left lower lobe measuring 1.5 x 1.2 x 1.8 cm. There is volume loss associated with a subpleural consolidation. Small right greater left pleural effusions. No suspicious pulmonary nodules which require follow up. Mediastinum: Heart size is normal. No pericardial effusion. No large vessel abnormality. No mediastin al adenopathy by size criteria. Coronary artery disease. Chest wall and lower neck: Thyroid is unremarkable. No axillary or supraclavicular adenopathy by size . Bones: No aggressive osseous abnormality. Upper Abdomen: Right lobe hypodensity of the liver likely reflects hepatic cyst. IMPRESSION: 1.No pulmonary embolus. 2.Stable areas of scarring with rounded atelectasis within the lingula. 3.Small pleural effusions. 4.Coronary artery disease. 5.Probable hepatic cyst. Reviewed by: Jaswinder Martines MD on 03/17/2024 3:41 PM CJ Approved by: Jaswinder Martines MD on 03/17/2024 3:41 PM CJ Station ID: [id number]
[2024-03-17] MEDS: iohexoL-300 100 ML VIAL IVP ONE (18:08)
[2024-03-17] MEDS: DOXYCYCLINE 100 MG TABLET PO STA (18:26)
[2024-03-17 18:43] VITALS: BP 142/60; O2SAT 98
[2024-03-17 19:16] LABS: B. PARAPERTUSSIS- RESP PCR PAN NOT DETECTED; B. PERTUSSIS- RESP PCR PANEL NOT DETECTED; C. PNEUMONIAE- RESP PCR PANEL NOT DETECTED; CORONAVIRUS 229E-RESP PCR NOT DETECTED; CORONAVIRUS HKU1-RESP PCR NOT DETECTED; CORONAVIRUS NL63-RESP PCR NOT DETECTED; CORONAVIRUS OC43-RESP PCR NOT DETECTED; HUMAN METAPNEUMOVIRUS NOT DETECTED; INFLUENZA A- RESP PCR PANEL NOT DETECTED; INFLUENZA B - RESP PCR PANEL NOT DETECTED; M. PNEUMONIAE- RESP PCR PANEL NOT DETECTED; PARAINFLUENZA VIRUS 1 NOT DETECTED; PARAINFLUENZA VIRUS 2 NOT DETECTED; PARAINFLUENZA VIRUS 3 NOT DETECTED; PARAINFLUENZA VIRUS 4 NOT DETECTED; RHINOVIRUS/ENTEROVIRUS NOT DETECTED; RSV- RESP PCR PANEL NOT DETECTED; SARS-CoV-2 -RESP PCR PANEL NOT DETECTED
== END 2024-03-17 18:39 | disposition home or self-care (01) ==
LOC: ED 14:20
DX: J18.9 Pneumonia, unspecified organism (principal); J40 Bronchitis, not specified as acute or chronic; E11.9 Type 2 diabetes mellitus without complications; Z79.4 Long term (current) use of insulin; E78.00 Pure hypercholesterolemia, unspecified; I11.0 Hypertensive heart disease with heart failure; I50.9 Heart failure, unspecified; G47.30 Sleep apnea, unspecified; Z79.82 Long term (current) use of aspirin; F17.210 Nicotine dependence, cigarettes, uncomplicated
CPT/HCPCS: 36415; 71045; 71275; 80053; 83690; 84484; 85025; 87633; 93005; 96360; 99284; A9270; Q9967